=== PATIENT | female | born 1995 | race Caucasian/White ===

== ENCOUNTER 2018-12-30 11:26 | Emergency (ER) | payer SELFPAY ==
[2018-12-30 11:29] VITALS: BP 121/69; PULSE 90; RESP 18; TEMP 36.4; O2SAT 98
--- NOTE | 2018-12-30 11:47 | DI.US_ITS ---
EXAM: US ABDOMEN LIMITED CLINICAL HISTORY: RLQ pain, hx of tuboovarian abscess TECHNIQUE: Ultrasound performed using standard protocol. The right lower quadrant was scanned. COMPARISON: ABD AND PELVIS WITH CONTRAST from 05/18/2014 PELVIS ULTRASOUND *(P) from 06/30/2014 US OB TRANSVAGINAL from 12/30/2018 FINDINGS: RIGHT LOWER QUADRANT ULTRASOUND: The appendix is visualized in the right lower quadrant and has a migue meter of 4 millimeters. There is no surrounding inflammation. The appendix is compressible. There is no surrounding fluid collection. OB ULTRASOUND: There is an intrauterine gestation. The crown-rump length measurements correspond to 9 weeks 0 days and an EDC of July,. cardiac activity is demonstrated at 175 beats per mi nute. A 2.2 centimeter corpus luteum cyst is seen of the right ovary. No free fluid or abscess is see n. There is no evidence of torsion. IMPRESSION: Normal-appearing appendix. Living intrauterine gestation of 9 weeks 0 days. No abscess or fluid collection is seen.
--- NOTE | 2018-12-30 11:50 | W.ED.GENAD ---
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 Please follow-up closely with your obstetrics amortization clerk tomorrow at your scheduled appointment. If you notice any worsening of your symptoms, or any new symptoms such as vomiting, vaginal bleeding, diarrhea, fever, chills, shortness of breath, chest pain, numbness, weakness, or fainting , please return immediately to the emergency department for reevaluation. Please follow up with your primary care provider as soon as possible for reassessment and reevaluation. As always, it was a pleasure participating in your medical care today. Referrals: Barak Sr [Primary Care Provider] - Medical Decision Making This is a pleasant 23-year-old female with a past medical history of a right-sided tubo-ovarian abscess in 2014 who presents with right-sided pelvic pain for the last 24 hours, worsened with movement. Sharp in nature. She did take 1 g of Tylenol and this is not improved the symptoms. No vaginal discharge. States that her symptoms feel similar to her previous tubo-ovarian abscess. She denies fever or chills. Exam demonstrates notable right pelvic tenderness. Negative obturator and psoas sign. No other abnormalities. Concern/differential is elevated for tubo-ovarian abscess, ectopic , and less likely appendicitis. Will start with ultrasound for further evaluation and assessment. We will treat the patient's pain, rehydrate and reassess. 2:25 PM Patient's laboratory work-up is returned, no white count, no significant left shift. No bandemia. Normal electrolytes, normal renal function. Urinalysis shows no evidence of infection. Bedside vaginal exam performed demonstrates no evidence of bleeding, no significant tenderness. Bimanual exam demonstrates minimal tenderness on the right, but very mild with no evidence of acute surgical pelvic exam. Ultrasound was performed, and confirmed with Dr. Mccarty of radiology. No evidence of torsion, or ectopic . No tubo-ovarian abscess. She did have a small cyst, but this was otherwise unremarkable. Appendix was visualized but confirmed to be inconsistent with acute appendicitis. On repeat exam she demonstrates a stable abdomen with stable vital signs. Signs and symptoms appear inconsistent with acute surgical process. At this time I do feel that she can be safely discharged with close follow-up. She does have follow-up appointment with her obstetrics amortization clerk tomorrow afternoon. We discussed red flags which to return. I have extensively reviewed the treatment plan and discharge instructions with the patient. I have addressed all patient concerns at this time. The patient was made aware of what symptoms to monitor for that would warrant a return to the emergency department. Discussed the plan with the patient, they demonstrate verbal understanding and agreement with our assessment and plan at this time. HPI General Date/Time Provider Initiated Documentation: 12/30/18 11:34. HPI Narrative: This is a 23-year-old female with past medical history of a right-sided tubo-ovarian abscess in the past who presents today with right-sided pelvic pain. She is G1, P0. She states that for the last 2 to 3 days she has had this right-sided pain which is sharp in nature comes and goes in severity. Worsened with movement. No associated diarrhea vomiting or urinary symptoms. She suspects that she is been for the last 8 weeks, she is scheduled for her normal ultrasound tomorrow. She states that this pain is similar to when she had her tubo-ovarian abscess in the past. She denies any vaginal discharge, she does admit to small amount of regular mucus vaginally but states that this is been consistent throughout this . She denies any other complaints at this time. No other modifying factors. 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 Removed 10/12/15. Pt didn't like menstrual irregularity. Started OCPs. 08/2016 Nexplanon inserted 09/09/17 Nexplanon out. Didnt like feeling hormonal. Condoms. Depression (Chronic) (Acute) Right tubo-ovarian abscess 05/2014. Neg STI testing at time of eval. Rx with ABX and resolved w/o surgery. Surgical History hemorrhoid banding (04/09/17) Social History (Updated 12/20/18 @ 21:24 by Janette Daigle MD) Smoking/Tobacco Use Status: Current every day Tobacco: How many years used: 1 Quit status: considering quitting Alcohol Intake: current Alcohol Intake frequency: a few times a month Drug use: Rarely Substance use type: marijuana Details: Reviewed risks of marijuana use with Household members: other Details: FOB is Indra Drew. In relationship since August 2018 Housing: other Details: Patient returned from [place] August 2018 Number of Children: 0 current occupation: Unemployed. Sexually active: Yes What is your relationship status?: never Panel score (0-1 are the most socially isolated patients): 0 What type of physical activity do you participate in: none Do you feel safe in your relationship?: Yes Additional Social history: Patient has returned to an from [place]. Unstable housing and limited resources Female Reproductive History Menstrual control method: other (Did not have active contraception) History History 1 Para 0 Hx # Term Pregnancies 0 Multiple births 0 Hx # Pregnancies 0 Ectopic pregnancies 0 AB induced 0 Hx Number of Living Children 0 AB spontaneous 0 Exam Narrative Exam Narrative: 1.Const: Well-nourished, Well-developed, appearing stated age 2.Eyes: PERRL, no conjunctival injection, and symmetrical lids. 3.ENT: Atraumatic external nose and ears. Moist MM. Neck: Symmetric, trachea midline, No thyromegaly. 4.CVS: +S1/S2, No murmurs or gallops. Peripheral pulses 2+ and equal in all extremities. Brisk capillary refill in all extremities. 5.RESP: Unlabored respiratory effort. Clear to auscultation bilaterally. No wheezes rales or rhonchi 6.GI: Soft, Nontender/Nondistended, No hepatosplenomegaly. Pelvic exam demonstrates mild tenderness in the right lower pelvis. Mild guarding. She also does have mild pain over McBurney's point. However this is notably low. Negative obturator and psoas sign. No flank or CVA tenderness. Negative heel strike. Vaginal exam deferred. 7.MSK: Normocephalic/Atraumatic, Extremities w/o deformity or ttp No cyanosis or clubbing, Normal movement of all extremities 8.Skin: Warm, Dry. No rashes or lesions. 9.Neuro: stage rigger II-XII grossly intact. Sensation grossly intact, no focal neurologic deficits. 10.Psych: (AAO) x3. Appropriate mood and affect Course Vital Signs Vital signs: Vital Signs Temperature 36.4 C L 12/30/18 11:29 Pulse 90 12/30/18 11:29 Respiratory Rate 18 12/30/18 11:29 Blood Pressure 121/69 12/30/18 11:29 Pulse Oximetry 98 12/30/18 11:29 Temperature 36.4 C L 12/30/18 11:29 Temperature Source Skin 12/30/18 11:29 Pulse 90 12/30/18 11:29 Respiratory Rate 18 12/30/18 11:29 Respiratory Effort 12/30/18 11:33 Blood Pressure 121/69 12/30/18 11:29 Blood Pressure Position Supine 12/30/18 11:29 Pulse Oximetry 98 12/30/18 11:29 Oxygen Delivery Method Room Air 12/30/18 11:29 Oxygen Flow Rate 0 12/30/18 11:29 Pain Level 7 12/30/18 11:29
[2018-12-30] MEDS: Normal Saline 1,000 ML 1000 ML IV (12:10)
[2018-12-30 12:40] LABS: Abs Immature Grans 0.02 k/cumm (0.0-0.09); Absolute Basophil Count 0.01 k/cumm (0.0-0.2); Absolute Eosinophil Count 0.02 k/cumm (0.0-0.7); Absolute Lymphocyte Count 1.03 k/cumm (1.2-3.4); Absolute Monocyte Count 0.34 k/cumm (0.11-0.7); Absolute Neutrophil Count 8.25 k/cumm (1.2-6.7); Basophils % 0.1; Eosinophils % 0.2; Immature Grans % 0.2; Lymphocytes % 10.7; Mean Corp. HGB Concentration 33.3 g/dL (32.0-36.0); Mean Corpuscular Hemoglobin 29.4 pg (27.0-33.0); Mean Corpuscular Volume 88.2 fL (80-95); Mean Platelet Volume 9.1 fL (8.0-11.0); Monocytes % 3.5; Neutrophils % 85.3; Platelet Count 311 x1000/uL (130-400); RBC 4.08 m/cumm (4.00-5.20); RBC Distribution Width 12.9 % (11.7-14.6); White Blood Cell Count 9.67 k/cumm (4.4-10.8)
[2018-12-30 13:06] LABS: Bilirubin Negative (Negative); Blood Negative (Negative); Clarity Clear (Clear); Glucose Negative (Negative); Ketones >=160 mg/dL (Negative); Leukocyte Esterase Negative (Negative); Nitrite Negative (Negative); Specific Gravity 1.025 (1.005-1.025); Urobilinogen 0.2 EU/dL (Up TO 0.2)
[2018-12-30 13:52] LABS: ALT 19 U/L (14-59); AST 11 U/L (15-37); Albumin 3.4 g/dL (3.4-5.0); Alkaline Phosphatase 38 U/L (46-116); BUN 9 mg/dL (7-18); Bilirubin, Total 0.7 mg/dL (0.2-1.0); CREATININE 0.54 mg/dL (0.55-1.02); Calcium 8.2 mg/dL (8.5-10.1); Chloride 104 mmol/L (98-107); Glucose 92 mg/dL (74-106); Potassium 3.5 mmol/L (3.5-5.1); Sodium 137 mmol/L (136-145); Total Protein 6.6 g/dL (6.4-8.2)
== END 2018-12-30 14:36 | disposition home or self-care (01) ==
PROVIDERS: Emergency Provider Student in an Organized Health Care Education/Training Program; PCP Specialist/Technologist Athletic Trainer
DX: O26.891 Other specified pregnancy related conditions, first trimester (principal); R10.2 Pelvic and perineal pain; F17.210 Nicotine dependence, cigarettes, uncomplicated; Z3A.08 8 weeks gestation of pregnancy
CPT/HCPCS: 36415; 80053; 96361; 96374; 99284; 76705; 76817; 81003; 83605; 84702; 85025

== ENCOUNTER 2019-01-07 11:12 | Outpatient (CLI) | payer SELFPAY ==
[2019-01-07 12:22] LABS: Abs Immature Grans 0.02 k/cumm (0.0-0.09); Absolute Basophil Count 0.01 k/cumm (0.0-0.2); Absolute Eosinophil Count 0.05 k/cumm (0.0-0.7); Absolute Lymphocyte Count 1.49 k/cumm (1.2-3.4); Absolute Neutrophil Count 7.85 k/cumm (1.2-6.7); Basophils % 0.1; Eosinophils % 0.5; HCT 39.5 % (36.0-46.0); HGB 13.2 g/dL (12.0-15.5); Immature Grans % 0.2; Mean Corp. HGB Concentration 33.4 g/dL (32.0-36.0); Mean Corpuscular Hemoglobin 29.3 pg (27.0-33.0); Mean Corpuscular Volume 87.8 fL (80-95); Mean Platelet Volume 9.4 fL (8.0-11.0); Neutrophils % 79.2; Platelet Count 380 x1000/uL (130-400); RBC Distribution Width 13.1 % (11.7-14.6); White Blood Cell Count 9.92 k/cumm (4.4-10.8)
[2019-01-07 12:55] LABS: TSH (W/Ref FT4) 1.22 uIU/mL (0.36-3.74)
[2019-01-09 08:41] LABS: Hepatitis B Surface Ag Negative (Negative)
[2019-01-09 09:20] LABS: Hepatitis C Ab w Rflx HCV PCR Negative (Negative)
[2019-01-09 11:45] LABS: HIV-1/2 Ag & Ab Screen Negative (Negative)
[2019-01-09 12:09] LABS: Rubella IgG Ab (UVM) Positive (See Note)
[2019-01-09 12:12] LABS: Varicella IgG Antibody Positive (See Note)
[2019-01-09 16:08] LABS: Syphilis Total Ab w/Reflex Nonreactive (Nonreactive)
== END 2019-01-07 11:32 ==
PROVIDERS: PCP Specialist/Technologist Athletic Trainer; Visit Provider Advanced Practice Midwife
DX: Z34.91 Encounter for supervision of normal pregnancy, unspecified, first trimester (principal); Z11.4 Encounter for screening for human immunodeficiency virus [HIV]; Z11.59 Encounter for screening for other viral diseases; Z01.84 Encounter for antibody response examination
CPT/HCPCS: 86787; 86803; 86850; 86900; 86901; 87340; 87389; 84443; 85025; 86762; 86780

== ENCOUNTER 2019-01-07 11:25 | Outpatient (REF) | payer SELFPAY ==
--- NOTE | 2019-01-07 11:20 | PAPFT_PTH ---
PATIENT: Opal Drew LOC: [facility] U#:[id number] AGE/SX: 23/F ROOM: RE01/07/[address]: Katie Thompson : 1995 BED: DIS: 01/07/2019 SPEC #: [id number] RECD: 01/07/19 12:56 STATUS: JULIA REQ #: [id number] PABLO: 01/07/19 11:[address]: Katie Thompson DEPT: [facility] Cytology RECD BY: Sandra Anderson ENTERED: 01/07/19 12:56 SP TYPE: PAPFT OTHR DR: Barak Sr Tissues: 1 - CX/ENDOCX FOR PAP SMEARS Procedures: PAP THIN PREP/UVM Screening Comments: [id number]
[2019-01-07 12:39] LABS: *AMPHETAMINES SCREEN URINE Negative (Negative); *BARBITURATES SCREEN URINE Negative (Negative); *BENZODIAZEPINES SCREEN URINE Negative (Negative); Cannabinoids THC Negative (Negative); Cocaine Screen,Urine Negative (Negative); METHADONE URINE SCREEN Negative (Negative); OPIATES URINE SCREEN Negative (Negative)
[2019-01-07 12:47] LABS: Tricyclic Antidepressants Negative (Negative)
[2019-01-12 11:35] LABS: Buprenorphine Negative; Norbuprenorphine Negative
== END 2019-01-07 11:45 ==
LOC: LBN 11:25
PROVIDERS: PCP Specialist/Technologist Athletic Trainer; Visit Provider Advanced Practice Midwife
DX: Z34.91 Encounter for supervision of normal pregnancy, unspecified, first trimester (principal); Z12.4 Encounter for screening for malignant neoplasm of cervix
CPT/HCPCS: 80307; 88142; 87086

== ENCOUNTER 2019-01-07 11:43 | Outpatient (REF) | payer SELFPAY ==
[2019-01-09 15:07] LABS: Chlamydia Result Negative (Negative)
[2019-01-12 10:46] LABS: GC Result Negative (Negative)
== END 2019-01-07 12:03 ==
LOC: LBN 11:43
PROVIDERS: PCP Specialist/Technologist Athletic Trainer; Visit Provider Advanced Practice Midwife
DX: Z34.91 Encounter for supervision of normal pregnancy, unspecified, first trimester (principal); Z11.3 Encounter for screening for infections with a predominantly sexual mode of transmission
CPT/HCPCS: 87491; 87591; 87480; 87510; 87660

== ENCOUNTER 2019-04-03 02:28 | Outpatient (CLI) | payer SELFPAY ==
--- NOTE | 2019-04-03 10:00 | DI.US_ITS ---
EXAM: US OB 2-3 TRIMESTER CLINICAL HISTORY: anatomy survey, Z34.90 TECHNIQUE: Ultrasound performed using standard protocol. COMPARISON: US OB TRANSVAGINAL from 12/30/2018 FINDINGS: Fetus was in variable position during the exam. The placenta is anterior. Biometric measurements co rrespond to 22 weeks 4 days, consistent with previous dating. No abnormalities are identified. The amniotic fluid amount appears visually normal. IMPRESSION: survey is within normal limits. DATA REPOSITORY:
== END 2019-04-03 02:48 ==
PROVIDERS: PCP Specialist/Technologist Athletic Trainer; Visit Provider Obstetrics & Gynecology
DX: Z34.90 Encounter for supervision of normal pregnancy, unspecified, unspecified trimester (principal); Z3A.22 22 weeks gestation of pregnancy
CPT/HCPCS: 76805

== ENCOUNTER 2019-04-18 12:29 | Observation (INO) | payer MEDICAID, SELFPAY ==
[2019-04-18 12:32] VITALS: BP 116/74; PULSE 102; RESP 18; TEMP 36.8; O2SAT 100
--- NOTE | 2019-04-18 12:52 | ED.GENADUL_ITS ---
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 Denies fever, vomiting, diarrhea or urinary symptoms. Denies any vaginal bleeding or gush of fluid. She is followed by women's wellness upstairs. She appears nontoxic. Heart rate 102, remainder vitals within normal limits. She has periumbilical tenderness palpated at gravid uterus just above umbilicus. No rigidity or guarding. No epigastric tenderness. Discussed with patient that differential could include gerd, gastritis, gas. Appendicitis seems less likely as pt denies any nausea and has no R mid-lower tenderness. Normal heart tones. As patient is near end of second trimester, consider labor. Case discussed with OB doctor on-call Dr. Villalba -accepts patient to transfer to floor for monitoring. Medical Records Medical records reviewed: Yes I reviewed the patient's medical records. HPI General Mode of arrival: ambulatory . Date/Time Provider Initiated Documentation: 04/18/19 12:43 . Limitations to Documentation: no limitations . Information obtained by: patient . History of Present Illness 23 year old F presents to the emergency department with the chief complaint of Abdominal pain, Quality is described as sharp, and is localized to the abdomen. Patient reports no radiation. Patient started experiencing this hour(s) (30) and it has been constant. No relieving factors improve symptom(s), No exacerbating factors reported . Patient notes loss of appetite; denies fever/chills, malaise, nausea/vomiting and shortness of breath. 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 Review of Systems All systems reviewed & are unremarkable except as noted in HPI and below Constitutional Constitutional: Reports as per HPI, Denies chills and Denies fever(s) Eyes Eyes: Denies blurry vision ENT Ears, Nose, Mouth, and Throat: Denies dizziness, Denies sore throat and Denies throat swelling Cardiovascular Cardiovascular: Denies chest pain and Denies dyspnea Respiratory Respiratory: Denies cough and Denies dyspnea Gastrointestinal Gastrointestinal: Reports abdominal pain, Denies diarrhea and Denies vomiting Genitourinary Genitourinary: Denies hematuria and Denies dysuria Musculoskeletal Musculoskeletal: Denies back pain and Denies numbness Integumentary/Breasts Skin/Breast: Denies lesions and Denies rash Neurologic Neurologic: Denies dizziness, Denies focal weakness and Denies numbness Allergic/Immunologic Allergic/Immunologic: Denies throat swelling [facility] Medical History (Updated 04/18/19 @ 12:53 by Caridad Edward DO) Atypical squamous cells of undetermined significance (ASCUS) on Papanicolaou smear of cervix (Acute) Contraception management Mirena IUD 08/2014. Removed 10/12/15. Pt didn't like menstrual irregularity. Started OCPs. 08/2016 Nexplanon inserted 09/09/17 Nexplanon out. Didnt like feeling hormonal. Condoms. Depression (Chronic) medication in the past, Has a counselor who she doesn't see often. Joey. (Acute) Right tubo-ovarian abscess 05/2014. Neg STI testing at time of eval. Rx with ABX and resolved w/o surg david. Tobacco dependence (Acute) Surgical History (Updated 01/07/19 @ 10:30 by Katie Thompson CNM) H/O hemorrhoidectomy (Chronic) hemorrhoid banding (04/09/17) Family History (Updated 01/07/19 @ 10:44 by Katie Thompson CNM) Mother Tachycardia Father Hypertension Depression Psychosis Mother Heart disease Social History (Updated 01/07/19 @ 10:12 by Elena Rose RN) Smoking/Tobacco Use Status: Current every day Tobacco: How many years used: 1 Quit status: considering quitting Alcohol Intake: former Year quit: 09/29 Drug use: Rarely Substance use type: marijuana Details: Reviewed risks of marijuana use with Household members: other Details: FOB is Indra Drew. In relationship since August 2018 Housing: other Details: Patient returned from [place] August 2018 Number of Children: 0 current occupation: Unemployed. Sexually active: Yes What is your relationship status?: never Panel score (0-1 are the most socially isolated patients): 0 What type of physical activity do you participate in: none Seatbelt use: always Do you feel safe in your relationship?: Yes Additional Social history: Patient has returned to an from [place]. Unstable housing and limited resources Female Reproductive History Menstrual control method: other (Did not have active contraception) History History 1 Para 0 Hx # Term Pregnancies 0 Multiple births 0 Hx # Pregnancies 0 Ectopic pregnancies 0 AB induced 0 Hx Number of Living Children 0 AB spontaneous 0 Exam Const General: cooperative, healthy appearing and no acute distress HENMT Head: normal to inspection Face and sinus: normal facial exam Eyes General: appearance normal, both eyes and all related structures EOM: EOM intact bilaterally Neck Neck: normal visual inspection and No submandibular swelling Lymphatic: no lymphadenopathy noted Chest Chest: normal inspection of the chest and no tenderness Resp Effort & Inspection: normal respiratory effort and able to speak in complete sentences Auscultation: clear to auscultation bilaterally Cardio Rate: regular rate Rhythm: regular rhythm GI Inspection: normal to inspection Palpation: soft, not firm, not rigid and tender periumbilically (Just above the gravid uterus at umbilicus) Auscultation: hypoactive bowel sounds Other: No epigastric, left lower quadrant or right lower quadrant tenderness. No right or left mid abdominal tenderness. Back/Spine/Pelvis Thoracic/Lumbar Spine: thoracic and lumbar spine normal to inspection Pelvis: no pain with anterior-posterior compression Skin General skin exam: no rashes or lesions noted Neuro General: alert, awake and oriented x3 Cognition: normal cognition Speech: speech normal Motor: muscle tone normal throughout Sensory Exam: no sensory deficits noted Extrem General: normal to inspection, full ROM, normal capillary refill, no calf tenderness bilaterally and no edema Psych Appearance: grossly normal Mental Status: mental status grossly normal Speech and Movement: speech and movement normal Affect: normal affect Course Vital Signs Vital signs: Vital Signs Temperature 98.2 F 04/18/19 12:32 Pulse 102 H 04/18/19 12:32 Respiratory Rate 18 04/18/19 12:32 Blood Pressure 116/74 04/18/19 12:32 Pulse Oximetry 100 04/18/19 12:32 Temperature 98.2 F 04/18/19 12:32 Temperature Source Temporal Artery Scan 04/18/19 12:32 Pulse 102 H 04/18/19 12:32 Respiratory Rate 18 04/18/19 12:32 Respiratory Effort Non-Labored 04/18/19 12:41 Blood Pressure 116/74 04/18/19 12:32 Blood Pressure Position Sitting 04/18/19 12:32 Pulse Oximetry 100 04/18/19 12:32 Oxygen Delivery Method Room Air 04/18/19 12:32 Oxygen Flow Rate 0 04/18/19 12:32 Pain Level 7 04/18/19 12:32
[2019-04-18 14:16] LABS: ALT 12 U/L (14-59); AST 12 U/L (15-37); Albumin 2.9 g/dL (3.4-5.0); Alkaline Phosphatase 60 U/L (46-116); Bilirubin, Direct 0.11 mg/dL (0.00-0.20); Bilirubin, Total 0.5 mg/dL (0.2-1.0); Total Protein 6.1 g/dL (6.4-8.2)
[2019-04-18 14:33] LABS: Fetal Fibronectin Negative (Negative)
--- NOTE | 2019-04-20 12:36 | W.PM.HP.N ---
Date of service: 04/19/19 Time of Service: 14:00 Assessment and Plan Assessment and plan (1) Abdominal pain during in second trimester: Status: Acute Assessment and plan: patient with mild epigastric pain, and no evidence of PIH, labor,. abruption or other ob complications. will push fluids, rest and follow up if any problems.. discussed bid domitila and labor precations. History of Present Illness History of Present Illness Chief Complaint: epigastric pain since 1130, no bleeding, leakage of fluid, or contractions Review of Systems Constitutional Constitutional: Denies anorexia, Denies body ache(s), Denies chills, Denies daytime sleepiness, Denies difficulty sleeping, Denies excessive sweating, Denies fatigue, Denies fever(s), Denies frequent falls, Denies headache(s), Denies increased appetite, Denies lethargy, Denies malaise, Denies night sweats, Denies poor appetite, Denies snoring, Denies stops breathing during sleep, Denies weakness, Denies weight loss and Denies other ENT Ears, Nose, Mouth, and Throat: Denies headache(s) Respiratory Respiratory: Denies snoring Gastrointestinal Gastrointestinal: Reports abdominal pain, Denies melena, Denies bloating, Denies change in bowel habits, Denies tenesmus, Denies change in stool character, Denies coffee ground emesis, Denies constipation and Denies early satiety Neurologic Neurologic: Denies frequent falls, Denies headache(s) and Denies weakness Endocrine Endocrine: Denies excessive sweating and Denies fatigue [facility] Medical History (Updated 04/18/19 @ 12:53 by Caridad Edward DO) Atypical squamous cells of undetermined significance (ASCUS) on Papanicolaou smear of cervix (Acute) Contraception management Mirena IUD 08/2014. Removed 10/12/15. Pt didn't like menstrual irregularity. Started OCPs. 08/2016 Nexplanon inserted 09/09/17 Nexplanon out. Didnt like feeling hormonal. Condoms. Depression (Chronic) medication in the past, Has a counselor who she doesn't see often. Joey. (Acute) Right tubo-ovarian abscess 05/2014. Neg STI testing at time of eval. Rx with ABX and resolved w/o surgery. Tobacco dependence (Acute) Surgical History (Updated 01/07/19 @ 10:30 by Katie Thompson CNM) H/O hemorrhoidectomy (Chronic) hemorrhoid banding (04/09/17) Family History (Updated 01/07/19 @ 10:44 by Katie Thompson CNM) Mother Tachycardia Father Hypertension Depression Psychosis Mother Heart disease Social History (Updated 01/07/19 @ 10:12 by Elena Rose RN) Smoking/Tobacco Use Status: Current every day Tobacco: How many years used: 1 Quit status: considering quitting Alcohol Intake: former Year quit: 09/29 Drug use: Rarely Substance use type: marijuana Details: Reviewed risks of marijuana use with Household members: other Details: FOB is Indra Drew. In relationship since August 2018 Housing: other Details: Patient returned from [place] August 2018 Number of Children: 0 current occupation: Unemployed. Sexually active: Yes What is your relationship status?: never Panel score (0-1 are the most socially isolated patients): 0 What type of physical activity do you participate in: none Seatbelt use: always Do you feel safe in your relationship?: Yes Additional Social history: Patient has returned to an [place] from [place]. Unstable housing and limited resources Female Reproductive History Menstrual control method: other (Did not have active contraception) History History 1 Para 0 Hx # Term Pregnancies 0 Multiple births 0 Hx # Pregnancies 0 Ectopic pregnancies 0 AB induced 0 Hx Number of Living Children 0 AB spontaneous 0 Meds Home Medications and Allergies Home Medications Medication Instructions Recorded Confirmed Type ondansetron HCl 4 mg tablet 4 mg PO Q6H #20 tab 12/31/18 04/18/19 Rx prenat.vits,zia,[id number]-eyko-zwpsa 1 tab PO DAILY 12/31/18 04/18/19 History Allergies Allergy/AdvReac Type Severity Reaction Status Date / Time adhesive Allergy Severe dunham skin Unverified 04/18/19 12:44 after being on tegan Allergy Intermediate vomiting Verified 04/18/19 12:44 Exam Const General: cooperative, healthy appearing, comfortable, no acute distress and well developed Nutritional Appearance: average body habitus Orientation: alert and oriented x3 GI Palpation: soft and no hepatosplenomegaly Other: patient has slight tenderness along the fundus. There are NO contractions on the monitor and there is a category one heart tones, Abdomen image: 1. patient reports pain in this area Bimanual Exam- Vagina & Uterus: uterus enlarged (The cervix is long, thick, closed and firm.) Results Last Vital Signs Temp 98.2 F 04/18/19 12:32 Pulse 102 H 04/18/19 12:32 Resp 18 04/18/19 12:32 BP 116/74 04/18/19 12:32 Pulse Ox 100 04/18/19 12:32
--- NOTE | 2019-04-20 13:07 | W.PM.HP.N ---
Date of service: 04/19/19 Time of Service: 12:08 Assessment and Plan Assessment and plan (1) Abdominal pain during in second trimester: Status: Acute Assessment and plan: Patient was evaluated, has no evidence of labor, no evidence of preeclampsia or help syndrome, no evidence of abruption. Will go home push fluids rest, reviewed twice daily kick counts as well as labor precautions PIH precautions with patient. History of Present Illness History of Present Illness Chief Complaint: Patient reports that she has had epigastric pain since 11:30 AM. No bleedi Review of Systems All systems reviewed & are unremarkable except as noted in HPI and below PFSH Medical History (Updated 04/18/19 @ 12:53 by Caridad Edward DO) Atypical squamous cells of undetermined significance (ASCUS) on Papanicolaou smear of cervix (Acute) Contraception management Mirena IUD 08/2014. Removed 10/12/15. Pt didn't like menstrual irregularity. Started OCPs. 08/2016 Nexplanon inserted 09/09/17 Nexplanon out. Didnt like feeling hormonal. Condoms. Depression (Chronic) medication in the past, Has a counselor who she doesn't see often. Joey. (Acute) Right tubo-ovarian abscess 05/2014. Neg STI testing at time of eval. Rx with ABX and resolved w/o surgery. Tobacco dependence (Acute) Surgical History (Updated 01/07/19 @ 10:30 by Katie Thompson CNM) H/O hemorrhoidectomy (Chronic) hemorrhoid banding (04/09/17) Family History (Updated 01/07/19 @ 10:44 by Katie Thompson CNM) Mother Tachycardia Father Hypertension Depression Psychosis Mother Heart disease Social History (Updated 01/07/19 @ 10:12 by Elena Rose RN) Smoking/Tobacco Use Status: Current every day Tobacco: How many years used: 1 Quit status: considering quitting Alcohol Intake: former Year quit: 09/29 Drug use: Rarely Substance use type: marijuana Details: Reviewed risks of marijuana use with Household members: other Details: FOB is Indra Drew. In relationship since August 2018 Housing: other Details: Patient returned from [place] August 2018 Number of Children: 0 current occupation: Unemployed. Sexually active: Yes What is your relationship status?: never Panel score (0-1 are the most socially isolated patients): 0 What type of physical activity do you participate in: none Seatbelt use: always Do you feel safe in your relationship?: Yes Additional Social history: Patient has returned to an EK from [place]. Unstable housing and limited resources Female Reproductive History Menstrual control method: other (Did not have active contraception) History History 1 Para 0 Hx # Term Pregnancies 0 Multiple births 0 Hx # Pregnancies 0 Ectopic pregnancies 0 AB induced 0 Hx Number of Living Children 0 AB spontaneous 0 Meds Home Medications and Allergies Home Medications Medication Instructions Recorded Confirmed Type ondansetron HCl 4 mg tablet 4 mg PO Q6H #20 tab 12/31/18 04/18/19 Rx prenat.vits,zia,[id number] 1 tab PO DAILY 12/31/18 04/18/19 History Allergies Allergy/AdvReac Type Severity Reaction Status Date / Time adhesive Allergy Severe dunham skin Unverified 04/18/19 12:44 after being on tegan Allergy Intermediate vomiting Verified 04/18/19 12:44 Exam Narrative Exam Narrative: Patient is alert, no acute distress Gravid uterus, mildly tender at the very top of the uterus, no right upper quadrant tenderness. No hepatosplenomegaly noted. There is no contractions noted on the toco. Cervix is long thick closed and firm. Results Last Vital Signs Temp 98.2 F 04/18/19 12:32 Pulse 102 H 04/18/19 12:32 Resp 18 04/18/19 12:32 BP 116/74 04/18/19 12:32 Pulse Ox 100 04/18/19 12:32
== END 2019-04-18 15:53 | disposition home or self-care (01) ==
LOC: ER 13:05 → OBS 13:32
PROVIDERS: Admitting Provider Obstetrics & Gynecology; Emergency Provider Physician Assistant; PCP Specialist/Technologist Athletic Trainer; Visit Provider Obstetrics & Gynecology
DX: O26.892 Other specified pregnancy related conditions, second trimester (principal); Z3A.24 24 weeks gestation of pregnancy; R10.13 Epigastric pain
CPT/HCPCS: 36415; 80076; 99222; 99285; 82731; 99284; G0378

== ENCOUNTER 2019-05-11 07:56 | Outpatient (CLI) | payer MEDICAID, SELFPAY ==
[2019-05-11 10:47] LABS: Glucose,1 Hr (Glucola) 103 mg/dL (80-140)
[2019-05-11 10:49] LABS: HCT 32.6 % (36.0-46.0); HGB 10.6 g/dL (12.0-15.5); Mean Corp. HGB Concentration 32.5 g/dL (32.0-36.0); Mean Corpuscular Hemoglobin 28.6 pg (27.0-33.0); Mean Corpuscular Volume 87.9 fL (80-95); Mean Platelet Volume 8.8 fL (8.0-11.0); Platelet Count 353 x1000/uL (130-400); RBC 3.71 m/cumm (4.00-5.20); RBC Distribution Width 12.2 % (11.7-14.6); White Blood Cell Count 10.28 k/cumm (4.4-10.8)
== END 2019-05-11 08:16 ==
PROVIDERS: Obstetrics & Gynecology; PCP Specialist/Technologist Athletic Trainer; Visit Provider Internal Medicine Gastroenterology
DX: Z34.93 Encounter for supervision of normal pregnancy, unspecified, third trimester (principal)
CPT/HCPCS: 36415; 82950; 85027

== ENCOUNTER 2019-07-05 11:09 | Observation (INO) | payer MEDICAID, SELFPAY ==
[2019-07-05 11:51] LABS: HCT 30.9 % (36.0-46.0); HGB 9.9 g/dL (12.0-15.5); Mean Corpuscular Hemoglobin 26.1 pg (27.0-33.0); Mean Corpuscular Volume 81.3 fL (80-95); Mean Platelet Volume 9.4 fL (8.0-11.0); Platelet Count 359 x1000/uL (130-400); RBC Distribution Width 13.3 % (11.7-14.6); White Blood Cell Count 9.86 k/cumm (4.4-10.8)
[2019-07-05 12:04] LABS: ALT 14 U/L (14-59); AST 14 U/L (15-37); Albumin 2.4 g/dL (3.4-5.0); Alkaline Phosphatase 155 U/L (46-116); BUN 4 mg/dL (7-18); Bilirubin, Total 0.5 mg/dL (0.2-1.0); CREATININE 0.59 mg/dL (0.55-1.02); Calcium 8.1 mg/dL (8.5-10.1); Chloride 104 mmol/L (98-107); Glucose 110 mg/dL (74-106); Potassium 3.5 mmol/L (3.5-5.1); Sodium 135 mmol/L (136-145); Total Protein 5.7 g/dL (6.4-8.2)
== END 2019-07-05 12:55 | disposition home or self-care (01) ==
LOC: OBS 11:19
PROVIDERS: Admitting Provider Obstetrics & Gynecology Gynecology; PCP Specialist/Technologist Athletic Trainer; Visit Provider Obstetrics & Gynecology Gynecology
DX: O12.03 Gestational edema, third trimester (principal); Z3A.35 35 weeks gestation of pregnancy
CPT/HCPCS: 36415; 80053; 85027; 59025; G0378

== ENCOUNTER 2019-07-07 13:49 | Outpatient (REF) | payer MEDICAID, SELFPAY ==
[2019-07-07 15:49] LABS: *AMPHETAMINES SCREEN URINE Negative (Negative); *BARBITURATES SCREEN URINE Negative (Negative); *BENZODIAZEPINES SCREEN URINE Negative (Negative); Cannabinoids THC Negative (Negative); Cocaine Screen,Urine Negative (Negative); METHADONE URINE SCREEN Negative (Negative); OPIATES URINE SCREEN Negative (Negative)
[2019-07-07 15:58] LABS: Tricyclic Antidepressants Negative (Negative)
[2019-07-14 13:18] LABS: Buprenorphine Negative; Norbuprenorphine Negative
== END 2019-07-07 14:09 ==
LOC: LBN 13:49
PROVIDERS: PCP Specialist/Technologist Athletic Trainer; Visit Provider Obstetrics & Gynecology
DX: Z34.93 Encounter for supervision of normal pregnancy, unspecified, third trimester (principal); Z36.85 Encounter for antenatal screening for Streptococcus B
CPT/HCPCS: 80307; 87081

== ENCOUNTER 2019-07-17 22:15 | Observation (INO) | payer MEDICAID, SELFPAY ==
[2019-07-17 22:47] LABS: ROM Plus Negative
== END 2019-07-17 23:00 | disposition home or self-care (01) ==
LOC: OBS 07-28 15:17
PROVIDERS: Admitting Provider Obstetrics & Gynecology; PCP Specialist/Technologist Athletic Trainer; Visit Provider Obstetrics & Gynecology
DX: O47.1 False labor at or after 37 completed weeks of gestation (principal); Z3A.37 37 weeks gestation of pregnancy
CPT/HCPCS: 84112; 59025; G0378

== ENCOUNTER 2019-07-29 06:44 | Inpatient (IN) | payer MEDICAID, SELFPAY ==
[2019-07-29 08:58] LABS: HGB 10.3 g/dL (12.0-15.5); Mean Corp. HGB Concentration 31.2 g/dL (32.0-36.0); Mean Corpuscular Hemoglobin 23.9 pg (27.0-33.0); Mean Corpuscular Volume 76.6 fL (80-95); Mean Platelet Volume 9.7 fL (8.0-11.0); Platelet Count 448 x1000/uL (130-400); RBC 4.31 m/cumm (4.00-5.20); RBC Distribution Width 14.5 % (11.7-14.6)
[2019-07-29] MEDS: Penicillin G POT. 5,000,000 UNITS in Normal Saline 100 ML 200 UNITS IVPB (10:36)
[2019-07-29] MEDS: Penicillin G POT. 3,000,000 UNITS in Normal Saline 50 ML 100 UNITS IVPB ×3 (14:08→22:03)
[2019-07-29] MEDS: Lactated Ringers 1,000 ML 125 ML IV (16:43)
[2019-07-29] MEDS: fentaNYL 100 MCG/2 ML VIAL EP (18:04)
[2019-07-29] MEDS: FentaNYL/ROPIvacaine 2 mcg/ml and 0.1% 200 ML CADD Cassette EP (18:04)
[2019-07-29] MEDS: Oxytocin/Normal Saline 30 UNITS/500 ML BAG IV (18:10)
[2019-07-30 01:15] LABS: COVID-19 RT-PCR UVMMC Result Negative (Negative)
[2019-07-30] MEDS: Lactated Ringers 1,000 ML 125 ML IV (01:51)
[2019-07-30] MEDS: Penicillin G POT. 3,000,000 UNITS in Normal Saline 50 ML 100 UNITS IVPB ×2 (02:14→06:02)
[2019-07-30] MEDS: Lidocaine 1% Multi-Dose 20 ML VIAL IJ (09:00)
--- NOTE | 2019-07-31 07:14 | W.PM.PROGNOT ---
Date of Service Date of service: 07/31/19 Time of Service: 07:14 Assessment and Plan Assessment and plan (1) (normal spontaneous vaginal delivery): Status: Acute Assessment and plan: day #1 status post normal spontaneous vaginal delivery. Doing well. Desires discharge home today. Will discharge if baby stable to do so. Follow-up in the office in 2 weeks and 6 weeks. Motrin and Tylenol as needed for pain Subjective Subjective Patient reports: no new complaints Interval history since last seen: Patient is seen day #1. She did get some sleep last night. She is working on breast-feeding directly versus expressed breast milk. Lochia is appropriate pain is appropriate Exam Const General: cooperative, healthy appearing, comfortable and no acute distress Orientation: alert and oriented x3 Eyes General: appearance normal, both eyes and all related structures Resp Effort & Inspection: normal respiratory effort Cardio Rate: regular rate Rhythm: regular rhythm Other: Uterus firm and below the umbilicus per nursing Extrem General: normal to inspection, no calf tenderness and no calf tenderness bilaterally Psych Appearance: grossly normal Mental Status: mental status grossly normal Speech and Movement: speech and movement normal Mood: congruent mood Affect: normal affect Attitude: cooperative Thought Process: normal Thought Content: normal Insight: insight good Judgment: judgment good Objective Objective Clinical Data: Intake & Output 07/30/19 07/30/19 07/31/19 11:59 23:59 11:59 Intake Total 1150 / 1150 Balance 1150 / 1150 Intake: IV 1150 / 1150 Laboratory Results WBC 12.40 k/cumm (4.4-10.8) H 07/29/19 08:45 RBC 4.31 m/cumm (4.00-5.20) 07/29/19 08:45 Hgb 10.3 g/dL (12.0-15.5) L 07/29/19 08:45 Hct 33.0 % (36.0-46.0) L 07/29/19 08:45 MCV 76.6 fL (80-95) L 07/29/19 08:45 MCH 23.9 pg (27.0-33.0) L 07/29/19 08:45 MCHC 31.2 g/dL (32.0-36.0) L 07/29/19 08:45 RDW 14.5 % (11.7-14.6) 07/29/19 08:45 Plt Count 448 x1000/uL (130-400) H 07/29/19 08:45 MPV 9.7 fL (8.0-11.0) 07/29/19 08:45 COVID-19 PCR Negative (Negative) 07/29/19 16:40 Nasopharyn COVID-19 PCR Not Applicable 07/29/19 16:40 Ref Test Perform Site [facility] lab 07/29/19 16:40 Patient ABO/Rh A Positive 07/29/19 08:45 Antibody Screen Negative 07/29/19 08:45
--- NOTE | 2019-07-31 07:21 | W.PM.DS.N ---
Date of service: 07/31/19 Time of Service: 07:21 DS: Diagnosis Discharge Diagnosis (1) (normal spontaneous vaginal delivery): Status: Acute Discharge Plan Disposition Patient Disposition: HOME Condition: Good Discharge Details Reason For Visit: R/O LABOR Admit Date/Time: 07/29/19 15:51 Admit Provider: Gemma Paulino Attending Provider: Janette Daigle Primary Care Provider: Barak Sr Hospital Course Hospital Course: Patient presented to [facility] in early labor. She had artificial rupture membranes for clear fluid she received epidural for pain control and subsequent Pitocin augmentation of her labor. She went on to the point that she was completely dilated and with the fetus in the vertex position delivered by normal spontaneous vaginal delivery of viable female . She had uncomplicated course and was discharged home day #1 ambulating, tolerating regular diet and oral pain medication with stable vital signs. Physiologic lochia. Breast and bottlefeeding. Home Meds and New Rx's Prescriptions: No Action prenat.vits,zia,fot-famo-fzpga Tablet 1 tab PO DAILY RF: 0 Discharge Instructions Additional Instructions: Pelvic rest for 6 weeks Activity:: Activity as Tolerated Equipment/Supplies:: No Equipment Needed Diet:: Normal Diet Discharge Orders Discharge Orders: Discharge Order (Routine); Ordered 07/31/19 Ordered By: Gemma Paulino DS: Summary Summary Time spent discussing smoking cessation with patient: 3 to 10 minutes Status at Discharge Functional status at discharge: independent ambulation Overall status at discharge: patient is back to baseline Mental Status: mental status grossly normal Speech and Movement: speech and movement normal Mood: congruent mood Affect: normal affect Time Spent with Patient providing and/or coordinating discharge services: Less than 30 minutes Specific discharge activities: Pelvic rest for 6 weeks Exam Narrative Exam Narrative: See examination progress note today Psych Mental Status: mental status grossly normal Speech and Movement: speech and movement normal Mood: congruent mood Affect: normal affect DS: Data Vitals/I&O Vitals and I&O: Intake & Output 07/30/19 07/30/19 07/31/19 11:59 23:59 11:59 Intake Total 1150 / 1150 Balance 1150 / 1150 Intake: IV 1150 / 1150 [facility] Medical History Atypical squamous cells of undetermined significance (ASCUS) on Papanicolaou smear of cervix (Acute) Contraception management Mirena IUD 08/2014. Removed 10/12/15. Pt didn't like menstrual irregularity. Started OCPs. 08/2016 Nexplanon inserted 09/09/17 Nexplanon out. Didnt like feeling hormonal. Condoms. Depression (Chronic) medication in the past, Has a counselor who she doesn't see often. Joey. (normal spontaneous vaginal delivery) (Acute) (Acute) Right tubo-ovarian abscess 05/2014. Neg STI testing at time of eval. Rx with ABX and resolved w/o surgery. Tobacco dependence (Acute) Surgical History H/O hemorrhoidectomy (Chronic) hemorrhoid banding (04/09/17) Family History Mother Tachycardia Father Hypertension Depression Psychosis Mother Heart disease Social History Smoking/Tobacco Use Status: Current every day Tobacco: How many years used: 1 Quit status: considering quitting Alcohol Intake: former Year quit: 09/29 Drug use: Rarely Substance use type: marijuana Details: Reviewed risks of marijuana use with Household members: other Details: FOB is Indra Drew. In relationship since August 2018 Housing: other Details: Patient returned from [place] August 2018 Number of Children: 0 current occupation: Unemployed. Sexually active: Yes What is your relationship status?: never Panel score (0-1 are the most socially isolated patients): 0 What type of physical activity do you participate in: none Seatbelt use: always Do you feel safe in your relationship?: Yes Additional Social history: Patient has returned to an EK from [place]. Unstable housing and limited resources Female Reproductive History Menstrual control method: other History History 1 Para 0 Hx # Term Pregnancies 0 Multiple births 0 Hx # Pregnancies 0 Ectopic pregnancies 0 AB induced 0 Hx Number of Living Children 0 AB spontaneous 0
== END 2019-07-31 13:45 | disposition home or self-care (01) | DRG 807 ==
PROVIDERS: Admitting Provider Obstetrics & Gynecology; PCP Specialist/Technologist Athletic Trainer; Visit Provider Obstetrics & Gynecology Gynecology
DX: O70.0 First degree perineal laceration during delivery (principal); Z37.0 Single live birth; O62.1 Secondary uterine inertia; O99.824 Streptococcus B carrier state complicating childbirth; O99.334 Smoking (tobacco) complicating childbirth; Z3A.39 39 weeks gestation of pregnancy; Z67.10 Type A blood, Rh positive; F17.210 Nicotine dependence, cigarettes, uncomplicated
CPT/HCPCS: 36415; 85027; 86850; 86900; 86901; 99232; 99238; U0003; G0378; J2540; J3010; J3490

== ENCOUNTER 2019-07-29 07:20 | Emergency (ER) | payer MEDICAID, SELFPAY ==
--- NOTE | 2019-07-29 07:34 | NUR.NOTE ---
Nursing Note: Claudia Mayorga, called stating that she found a pre admit account for patient for today in Center. I called Center and they stated that they were indeed waiting for her at that dept. RAGHAV Gundesron was notified and she took the patient up to the Center. Ade Dumas.
--- NOTE | 2019-07-29 09:04 | NUR.NOTE ---
Brought to OB in a w/c as they were expecting her. Mother with pt.Nursing Note:
== END 2019-07-29 07:34 | disposition other institution (70) ==
LOC: ER 07:38
PROVIDERS: PCP Specialist/Technologist Athletic Trainer
DX: Z53.21 Procedure and treatment not carried out due to patient leaving prior to being seen by health care provider (principal)

== ENCOUNTER 2019-09-15 00:38 | Outpatient (CLI) | payer MEDICAID, SELFPAY ==
--- NOTE | 2019-09-15 06:15 | DI.US_ITS ---
EXAM: US PELVIS TRANSVAGINAL CLINICAL HISTORY: Right sided pelvic pain,RT OVARIAN CYST,N83.201 TECHNIQUE: Ultrasound performed using standard protocol. COMPARISON: No exams were available for comparison FINDINGS: Pelvic ultrasound was performed transabdominally and transvaginally. Please see the accompanying carlo a sheet for measurements of the pelvic structures. The ovaries have a normal follicular appearance. Uterus is unremarkable in appearance with 2-3 millimeter in diameter unremarkable endometrial stripe . No free fluid identified in the cul-de-sac. Limited scanning of the kidneys unremarkable. IMPRESSION: Negative pelvic ultrasound. DATA REPOSITORY:
== END 2019-09-15 00:58 ==
PROVIDERS: PCP Specialist/Technologist Athletic Trainer; Visit Provider Obstetrics & Gynecology
DX: N83.201 Unspecified ovarian cyst, right side (principal); R10.2 Pelvic and perineal pain
CPT/HCPCS: 76830; 76856

== ENCOUNTER 2020-03-25 01:26 | Outpatient (CLI) | payer MEDICAID, SELFPAY ==
[2020-03-25 10:14] LABS: MCH 23.4 pg (27.0-33.0); MCHC 30.2 % (32.0-36.0); MCV 77.5 fL (80-95); Platelet Count 429 10^3/uL (130-400); RBC 5.55 10^6/uL (3.93-5.22); RDW 15.9 % (11.7-14.6); RDW-SD 44.9 fL; WBC 7.12 10^3/uL (4.4-10.8)
[2020-03-26 11:48] LABS: COVID-19 RT-PCR UVMMC Result Negative (Negative)
== END 2020-03-25 01:27 | disposition home or self-care (01) ==
LOC: LBO 01:26
PROVIDERS: PCP Nurse Practitioner Family; Visit Provider Obstetrics & Gynecology
DX: R10.2 Pelvic and perineal pain (principal); Z20.822 Contact with and (suspected) exposure to COVID-19; Z01.818 Encounter for other preprocedural examination; Z01.812 Encounter for preprocedural laboratory examination
CPT/HCPCS: 36415; 85027; 86850; 86900; 86901; U0003

== ENCOUNTER 2020-03-30 06:01 | Day surgery (SDC) | payer MEDICAID, SELFPAY ==
[2020-03-30] VITALS (7 sets, daily range): BP systolic 96–118; BP diastolic 59–75; PULSE 64–93; RESP 11–18; TEMP 36.3–36.8; O2SAT 99–100
[2020-03-30] MEDS: Lactated Ringers 1,000 ML 125 ML IV (07:00)
[2020-03-30 07:48] LABS: HCG Quant, Pregnancy 1 mIU/mL (1-3)
--- NOTE | 2020-03-30 08:49 | ROE_ITS ---
Date of service: 03/30/20 Time of Service: 08:49 Operative Note Operative Note DATE OF PROCEDURE: 03/30/20 PRE-OP DIAGNOSIS: Pelvic pain POST-OP DIAGNOSIS: same Same with pelvic adhesions PROCEDURE: Operative laparoscopy with extensive lysis of pelvic adhesions and ovarian cystotomy SURGEON: Gemma Paulino ASSISTING SURGEON: Janette Daigle ANESTHESIA TYPE: General LMA/ETT Refer to Anesthesia Record ESTIMATED BLOOD LOSS: 5 PATHOLOGY: none sent COMPLICATIONS: None Patient was transported to: PACU Patient's condition: stable Indications: Chronic pelvic pain with a history of right-sided tubo-ovarian abscess Findings: 3 cm right ovarian cyst. Filmy adhesions of the right fallopian tube to the right ovary with fluid collection. Adhesions of the rectosigmoid colon to the posterior uterus and posterior cul-de-sac with fluid collection Procedure Description: Patient is a 24-year-old female with ongoing chronic pelvic pain. In her history, she does have a history of pelvic inflammatory disease with right tubo-ovarian abscess at the age of 17 which was treated conservatively with IV and oral antibiotics. She has had ongoing unrelenting pelvic pain worse on the left lower quadrant. To this point she wishes for definitive diagnosis. The risk benefits and alternatives of surgery were explained to patient including risk of infection, bleeding, injury to surrounding organs, risk of anesthesia, risk of thromboembolism, risk of need for open laparotomy and risk of recurrence of her pelvic pain with no pathology noted. Full informed consent was obtained. She is taken the operating suite with an IV running where she was placed in the dorsal supine position and endotracheal intubation performed for administration of general anesthesia ease. She then placed in the modified dorsolithotomy position and exam under anesthesia revealed the uterus is midline and mobile without evidence of pelvic fullness. Her bladder was drained for approximately 50 cc of clear yellow urine. At this point speculum was placed into the vaginal vault and a single- tooth tenaculum used to grasp the anterior lip of the cervix. A ZUMI uterine manipulator was placed into the endometrial cavity for uterine manipulation. At this point tenaculum and speculum were both removed and attention was turned to the abdomen. Point half percent Marcaine was used to infiltrate at the umbilicus and a 10 mm vertical incision was made. The anterior abdominal wall was elevated and a varies needle was used and directly inserted into the abdomen. CO2 gas was used to create a pneumoperitoneum to a maximum pressure of 15 mmHg. At this point a bladeless Optiview sleeve and trocar were inserted into the abdomen under direct visualization. The uterus was elevated and there is noted to be a large serous fluid collection around the right adnexal region with adhesion of the fallopian tube to the right ovary and an underlying right ovarian cyst. There is also noted significant thin pelvic adhesions of the rectosigmoid colon to be left pelvic sidewall and posterior uterus. Due to this adhesive disease decision was made for operative laparoscopy and a second and third right and left lower quadrant trocar site were inserted under direct visualization after infiltration of half percent Marcaine. At this point, a grasper was used to elevate the right fallopian tube and Metzenbaum scissors were used to incise the thin adhesions allowing fluid drainage into the cul-de-sac. At this point attention was turned to the rectosigmoid colon area which was gently elevated away from the left pelvic sidewall and with meticulous sharp dissection filmy adhesions were removed allowing the rectosigmoid colon to become free and mobile. All serous fluid was then suction irrigated from the abdomen and incision sites were inspected and hemostatic. At this point attention was turned to the right ovary which with cautery and sharp dissection cystotomy was performed allowing drainage for approximately 10 cc of serous fluid. At this point abdomen was again irrigated with copious amounts of normal saline warmed and then inspected there is no evidence of other adhesive disease throughout the abdomen or pelvis noted. Liver edge smooth and regular without evidence of inflammatory process. At this point procedure was terminated and CO2 gas was initially decreased to 5 mm and all incisional sites inspected and found to be hemostatic. With all hemostasis noted CO2 gas was discontinued and pneumoperitoneum released. All instruments were removed from the abdomen under direct visualization. At this point fascial incision was at the umbilicus was closed using 0 Vicryl suture in a simple interrupted fashion skin edges were reapproximated with 4-0 Monocryl suture and Steri-Strips were placed. ZUMI uterine manipulator that had been previously placed was removed. She was returned to dorsal supine position and woke from anesthesia with ease. Findings: Simple appearing right ovarian cyst. Adhesions of the right fallopian tube to right ovary with fluid collection, relieved. Adhesions of the rectosigmoid colon to the posterior uterus and left pelvic sidewall, lysed extensively. Normal-appearing left ovary, fallopian tubes, and uterus. Smooth and regular liver edge without evidence of inflammatory response. EBL: 5 mL Complications: None apparent pathology: None sent.
[2020-03-30] MEDS: Bupivacaine 0.5% Pres-Free 30 ML VIAL (08:53)
== END 2020-03-30 11:24 | disposition home or self-care (01) ==
PROVIDERS: PCP Nurse Practitioner Family; Visit Provider Obstetrics & Gynecology
PROC: (CPT 49320; principal; 2020-03-30 07:30)
DX: N73.6 Female pelvic peritoneal adhesions (postinfective) (principal); N83.201 Unspecified ovarian cyst, right side; R10.2 Pelvic and perineal pain; G89.29 Other chronic pain
CPT/HCPCS: 58660; 36415; 84702; 84703; J1100; J1885; J2001; J2405; J2704; J3010

== ENCOUNTER 2020-06-18 07:26 | Emergency (ER) | payer MEDICAID, SELFPAY ==
[2020-06-18 07:29] VITALS: BP 120/73; PULSE 83; RESP 18; TEMP 36.4; O2SAT 100
--- NOTE | 2020-06-18 07:36 | ED.GENADUL_ITS ---
Discharge Plan Disposition Patient Disposition: HOME Condition: Good Discharge Details Clinical Impression: Abrasion, corneal Primary Care Provider: Kaitlyn Mckeon ED Provider: Wilfrido Moss [facility] Meds and New Rx's Prescriptions: New erythromycin 5 mg/gram (0.5 %) ointment 0.5 inch ophthalmic (eye) QID Qty: 3.5 RF: 0 Continued ibuprofen 800 mg tablet 800 mg PO Q8H PRNQty: 30 RF: 1 Changed acetaminophen 500 mg Capsule 1,000 mg PO Q6H PRNQty: 0 RF: 0 Discharge Instructions Instructions: Corneal Abrasion (ED) Additional Instructions: Use erythromycin ointment as directed. Ibuprofen and/or acetaminophen as needed for pain. Follow-up with [facility] Saturday for recheck. Return to ED for severe pain, vision change, other concerns Referrals: [facility] [Outside] Medical Decision Making Patient noted to have significant corneal abrasion at the 7 o'clock position left eye. Tetanus will be updated. Erythromycin ointment ordered and will continue to use 4-6 times a day. Ibuprofen and/or acetaminophen for discomfort. Follow-up at [facility] Saturday. Return to ED if worsening pain, change in vision, other concerns HPI General Mode of arrival: ambulatory . Date/Time Provider Initiated Documentation: 06/18/20 07:36 . Limitations to Documentation: no limitations . Information obtained by: patient and RN notes reviewed . HPI Narrative: Patient presents to the ED with left eye pain. Patient was removing paper out of her desk drawer. She brought them up close to her face and somehow sustained a paper cut to the left eye. She does not wear contact lenses but does wear glasses. Did not have them on this morning. Is unable to open her eyes because of pain. Eyes tearing. Vision is a little blurry but more so than what she is used to when not wearing her glasses Related Data Home Medications Medication Instructions Recorded Confirmed ibuprofen 800 mg PO Q8H PRN #30 tab 03/30/20 06/18/20 acetaminophen 1,000 mg PO Q6H PRN #0 cap 06/18/20 06/18/20 erythromycin 0.5 inch OPHTHALMIC (EYE) QID #3.5 06/18/20 g Previous Rx's Medication Instructions Recorded ibuprofen 800 mg PO Q8H PRN #30 tab 03/30/20 acetaminophen 1,000 mg PO Q6H PRN #0 cap 06/18/20 erythromycin 0.5 inch OPHTHALMIC (EYE) QID #3.5 06/18/20 g Allergies Allergy/AdvReac Type Severity Reaction Status Date / Time adhesive Allergy Severe dunham skin Unverified 06/18/20 07:33 after being on tegan Allergy Intermediate vomiting Verified 06/18/20 07:33 red dye Allergy Intermediate Other (See Unverified 06/18/20 07:33 Comment) General Stated Complaint: EyeProblem ANJEL: 4 Review of Systems Constitutional Constitutional: Denies fever(s) Eyes Eyes: Reports eye pain and Reports requires corrective lenses Cardiovascular Cardiovascular: Denies dyspnea Respiratory Respiratory: Denies cough and Denies dyspnea PFSH Medical History Abdominal pain during in second trimester Atypical squamous cells of undetermined significance (ASCUS) on Papanicolaou smear of cervix Contraception management Mirena IUD 08/2014. Removed 10/12/15. Pt didn't like menstrual irregularity. Started OCPs. 08/2016 Nexplanon inserted 09/09/17 Nexplanon out. Didnt like feeling hormonal. Condoms. Depression medication in the past, Has a counselor who she doesn't see often. Joey. (normal spontaneous vaginal delivery) Right tubo-ovarian abscess (05/19/14) Right tubo-ovarian abscess 05/2014. Neg STI testing at time of eval. Rx with ABX and resolved w/o surgery. Tobacco dependence Surgical History H/O hemorrhoidectomy hemorrhoid banding (04/09/17) Status post laparoscopy Lysis of extensive pelvic adhesions and right ovarian cystotomy Family History Mother Tachycardia Father Hypertension Depression Psychosis Mother Heart disease Social History Smoking/Tobacco Use Status: Current every day Tobacco Type: cigarettes Tobacco: How many years used: 1 Quit status: considering quitting Smoking risk assessment performed?: Yes Alcohol Intake: current Alcohol Intake frequency: holidays/special occasions only Drug use: Occasionally Substance use type: marijuana Details: alcohol: t-2, half beer Household members: other Details: FOB is Indra Drew. In relationship since August 2018 Housing: other Details: Patient returned from [place] August 2018 Number of Children: 0 current occupation: Unemployed. Sexually active: Yes What is your relationship status?: never Panel score (0-1 are the most socially isolated patients): 0 What type of physical activity do you participate in: none Seatbelt use: always Do you feel safe at home: Yes Do you feel safe in your relationship?: Yes Female Reproductive History Menstrual control method: other History History 1 Para 1 Hx # Term Pregnancies 1 Multiple births 0 Hx # Pregnancies 0 Ectopic pregnancies 0 AB induced 0 Hx Number of Living Children 1 AB spontaneous 0 Past Pregnancies Del. Date GA/Weeks # Outcome Route Wgt Sex Labor Lgth Anesthes ia Location Prov Complic 07/30/19 39 No Successful vaginal 3600.389 g Female MD Ana Exam Const General: no acute distress HENMT Head: normocephalic and atraumatic Eyes Periorbital: periorbital findings normal Eyelids: eyelids normal Conjunctivae: conjunctival abnormality left conjunctival injection Cornea: corneas abnormal on the left abrasion and fluorescein used Pupils: PERRL EOM: EOM intact bilaterally Resp Effort & Inspection: normal respiratory effort Neuro General: patient alert, patient oriented x3 and moves all extremities Course Vital Signs Vital signs: Vital Signs Temperature 97.5 F L 06/18/20 07:29 Pulse 83 06/18/20 07:29 Respiratory Rate 18 06/18/20 07:29 Blood Pressure 120/73 06/18/20 07:29 Pulse Oximetry 100 06/18/20 07:29 Temperature 97.5 F L 06/18/20 07:29 Temperature Source Temporal Artery Scan 06/18/20 07:29 Pulse 83 06/18/20 07:29 Respiratory Rate 18 06/18/20 07:29 Respiratory Effort Non-Labored 06/18/20 07:34 Blood Pressure 120/73 06/18/20 07:29 Blood Pressure Position Sitting 06/18/20 07:29 Pulse Oximetry 100 06/18/20 07:29 Oxygen Delivery Method Room Air 06/18/20 07:29 Oxygen Flow Rate 0 06/18/20 07:29 Pain Level 7 06/18/20 07:29
[2020-06-18] MEDS: Fluorescein STRIPS 100/BOX 1 MG (07:50)
[2020-06-18] MEDS: Tetracaine 0.5% 4 ML BTL OP (07:50)
[2020-06-18] MEDS: Erythromycin Ophth Oint 3.5 GM TUBE OP (07:59)
[2020-06-18] MEDS: Ibuprofen 600 MG TAB PO (08:11)
== END 2020-06-18 08:10 | disposition home or self-care (01) ==
PROVIDERS: Emergency Provider Emergency Medicine; PCP Nurse Practitioner Family
DX: S05.02XA Injury of conjunctiva and corneal abrasion without foreign body, left eye, initial encounter (principal); W26.2XXA Contact with edge of stiff paper, initial encounter
CPT/HCPCS: 90471; 99284; 99283

== ENCOUNTER 2020-06-19 14:05 | Emergency (ER) | payer MEDICAID, SELFPAY ==
[2020-06-19 14:10] VITALS: BP 130/93; PULSE 83; RESP 18; TEMP 36.6; O2SAT 100
--- NOTE | 2020-06-19 14:48 | ED.GENADUL_ITS ---
Discharge Plan Disposition Patient Disposition: HOME Condition: Good Discharge Details Clinical Impression: Abrasion, corneal Primary Care Provider: Kaitlyn Mckeon ED Provider: Sandra Lopes Home Meds and New Rx's Prescriptions: New ketorolac 0.5 % drops 1 drp ophthalmic (eye) QID Qty: 3 RF: 0 No Action ibuprofen 800 mg tablet 800 mg PO Q8H PRNQty: 30 RF: 1 erythromycin 5 mg/gram (0.5 %) ointment 0.5 inch ophthalmic (eye) QID Qty: 3.5 RF: 0 acetaminophen 500 mg Capsule 1,000 mg PO Q6H PRNQty: 0 RF: 0 Discharge Instructions Instructions: Corneal Abrasion (ED) Additional Instructions: Follow-up with eye doctor tomorrow Wear sunglasses Ibuprofen and Tylenol You may use ketorolac as prescribed Return earlier with vision change or should you have new or worsening complaints Stand Alone Forms: Work Release Discharge Data Discharge Date/Time-TO BE ENTERED AT DEPARTURE: 06/19/20 15:20 Medical Decision Making Visual acuity obtained, please refer to nursing Pupils equal round reactive to light and accommodation Return precautions discussed and patient expressed understanding Cyclogyl you to evaluate pupil, patient reports symptomatic improvement Return precautions discussed patient expressed understanding, placed on [facility] callback list Negative Alena sign Differential Diagnosis Differential Diagnosis: Corneal abrasion, iritis, corneal ulcer HPI General Mode of arrival: ambulatory . Date/Time Provider Initiated Documentation: 06/19/20 14:06 . Limitations to Documentation: no limitations . Information obtained by: patient . HPI Narrative: This 24-year-old female presents with pain to left side. Patient states that she was pulling a piece of paper out of a drawer 2 days ago when she accidentally has a corner of her eye. Patient denies any additional injury. She is finishing the erythromycin ointment as prescribed. She denies any change in her vision. She is going to follow-up with ophthalmology tomorrow. Related Data Home Medications Medication Instructions Recorded Confirmed ibuprofen 800 mg PO Q8H PRN #30 tab 03/30/20 06/19/20 acetaminophen 1,000 mg PO Q6H PRN #0 cap 06/18/20 06/19/20 erythromycin 0.5 inch OPHTHALMIC (EYE) QID #3.5 06/18/20 06/19/20 g ketorolac 1 drp OPHTHALMIC (EYE) QID #3 ml 06/19/20 Previous Rx's Medication Instructions Recorded ibuprofen 800 mg PO Q8H PRN #30 tab 03/30/20 acetaminophen 1,000 mg PO Q6H PRN #0 cap 06/18/20 erythromycin 0.5 inch OPHTHALMIC (EYE) QID #3.5 06/18/20 g ketorolac 1 drp OPHTHALMIC (EYE) QID #3 ml 06/19/20 Allergies Allergy/AdvReac Type Severity Reaction Status Date / Time adhesive Allergy Severe dunham skin Unverified 06/19/20 14:17 after being on tegan Allergy Intermediate vomiting Verified 06/19/20 14:17 red dye Allergy Intermediate Other (See Unverified 06/19/20 14:17 Comment) General Stated Complaint: EyeProblem ANJEL: 4 Review of Systems Narrative: Review of systems obtained x7 aside from where indicated in HPI [facility] Medical History Abdominal pain during in second trimester Atypical squamous cells of undetermined significance (ASCUS) on Papanicolaou smear of cervix Contraception management Mirena IUD 08/2014. Removed 10/12/15. Pt didn't like menstrual irregularity. Started OCPs. 08/2016 Nexplanon inserted 09/09/17 Nexplanon out. Didnt like feeling hormonal. Condoms. Depression medication in the past, Has a counselor who she doesn't see often. Joey. (normal spontaneous vaginal delivery) Right tubo-ovarian abscess (05/19/14) Right tubo-ovarian abscess 05/2014. Neg STI testing at time of eval. Rx with ABX and resolved w/o surgery. Tobacco dependence Surgical History H/O hemorrhoidectomy hemorrhoid banding (04/09/17) Status post laparoscopy Lysis of extensive pelvic adhesions and right ovarian cystotomy Family History Mother Tachycardia Father Hypertension Depression Psychosis Mother Heart disease Social History Smoking/Tobacco Use Status: Current every day Tobacco Type: cigarettes Tobacco: How many years used: 1 Quit status: considering quitting Smoking risk assessment performed?: Yes Alcohol Intake: current Alcohol Intake frequency: holidays/special occasions only Drug use: Occasionally Substance use type: marijuana Household members: other Details: JUAN is Indra Drew. In relationship since August 2018 Housing: other Details: Patient returned from [place] August 2018 Number of Children: 0 current occupation: Unemployed. Sexually active: Yes What is your relationship status?: never Panel score (0-1 are the most socially isolated patients): 0 What type of physical activity do you participate in: none Seatbelt use: always Do you feel safe at home: Yes Do you feel safe in your relationship?: Yes Female Reproductive History Menstrual control method: other History History 1 Para 1 Hx # Term Pregnancies 1 Multiple births 0 Hx # Pregnancies 0 Ectopic pregnancies 0 AB induced 0 Hx Number of Living Children 1 AB spontaneous 0 Past Pregnancies Del. Date GA/Weeks # Outcome Route Wgt Sex Labor Lgth Anesthes ia Location Prov Complic 07/30/19 39 No Successful vaginal 3600.389 g Female MD Ana Exam Const General: cooperative Orientation: alert and oriented x3 Eyes Pupils: PERRL Other: Approximately 3 mm corneal abrasion noted centrally extending over the pupil, no evidence of ulceration or secondary infection Negative Alena sign Course Vital Signs Vital signs: Vital Signs Temperature 36.6 C 06/19/20 14:10 Pulse 83 06/19/20 14:10 Respiratory Rate 18 06/19/20 14:10 Blood Pressure 130/93 H 06/19/20 14:10 Pulse Oximetry 100 06/19/20 14:10 Temperature 36.6 C 06/19/20 14:10 Temperature Source Skin 06/19/20 14:10 Pulse 83 06/19/20 14:10 Respiratory Rate 18 06/19/20 14:10 Respiratory Effort Non-Labored 06/19/20 14:14 Blood Pressure 130/93 H 06/19/20 14:10 Blood Pressure Position Sitting 06/19/20 14:10 Pulse Oximetry 100 06/19/20 14:10 Oxygen Delivery Method Room Air 06/19/20 14:10 Oxygen Flow Rate 0 06/19/20 14:10 Pain Level 8 06/19/20 14:10
[2020-06-19] MEDS: Tetracaine 0.5% 4 ML BTL (15:05)
[2020-06-19] MEDS: Fluorescein STRIPS 100/BOX 1 MG OP (15:06)
--- NOTE | 2020-06-19 15:22 | NUR.NOTE ---
Nursing Note: faxed referral to [facility]. [place]
== END 2020-06-19 15:20 | disposition home or self-care (01) ==
PROVIDERS: Emergency Provider Physician Assistant; PCP Nurse Practitioner Family
DX: S05.02XD Injury of conjunctiva and corneal abrasion without foreign body, left eye, subsequent encounter (principal); W26.2XXD Contact with edge of stiff paper, subsequent encounter
CPT/HCPCS: 99283

== ENCOUNTER 2020-07-10 07:09 | Emergency (ER) | payer MEDICAID, SELFPAY ==
[2020-07-10 07:13] VITALS: BP 124/79; PULSE 75; RESP 16; TEMP 36.6; O2SAT 99
--- NOTE | 2020-07-10 07:22 | W.ED.GENAD ---
Discharge Plan Disposition Patient Disposition: HOME Condition: Good Discharge Details Clinical Impression: Corneal erosion of left eye Primary Care Provider: Kaitlyn Mckeon ED Provider: Wilfrido Moss Meds and New Rx's Prescriptions: New erythromycin 5 mg/gram (0.5 %) Ointment See Rx Instructions .ROUTE .COMPLEX Qty: 3.5 RF: 0 ketorolac 0.5 % drops 1 drp ophthalmic (eye) QID Qty: 5 RF: 0 Continued acetaminophen 500 mg Capsule 1,000 mg PO Q6H PRNQty: 0 RF: 0 Discharge Instructions Additional Instructions: This appears to be corneal erosion related to previous corneal abrasion. Start antibiotic ointment and pick up attendant ketorolac eye drops. Take tylenol as needed. Follow up with [facility], call on Saturday. Return to ED for worse pain, vision change, fever Referrals: [facility] [Outside] Discharge Data Discharge Date/Time-TO BE ENTERED AT DEPARTURE: 07/10/20 08:39 Medical Decision Making Patient with recurrent left eye pain and tearing without visual change approximately 2 weeks status post corneal abrasion related to paper cut. She reports no change in vision. She did not call or follow back up with Ciaran when symptoms restarted. She has a round floor seen uptake inferior to the pupil. This is seen best with Solis lamp. Minimal uptake using slit lamp cobalt light. Corneal exam with slit lamp reveals no obvious ulceration, edema. There is no cell or flare in the anterior chamber. Suspect that this is recurrent corneal erosion related to previous corneal abrasion earlier this month. Will restart erythromycin ointment. Will prescribe ketorolac eyedrops to help with pain. Tylenol for oral pain relief. Needs to follow-up with Ciaran this week. Return to ED if change in vision, headache, fever, worsening pain. HPI General Mode of arrival: ambulatory. Date/Time Provider Initiated Documentation: 07/10/20 07:20. Limitations to Documentation: no limitations. Information obtained by: patient, RN notes reviewed and old records reviewed. HPI Narrative: Patient presents to ED with left eye pain. Patient seen in the ED earlier this month with left corneal abrasion related to paper cut. She was treated with erythromycin and subsequently followed up with [facility] and was deemed fine. She was prescribed ketorolac eyedrops which she never picked up. About 10 days ago she woke up in the middle of the night with left eye discomfort. She felt like there was something in it. She rubbed at it a little bit and went back to sleep. Since then the eye has continued to have pain, tearing, increasing redness. She has had no change in vision. She did not call a follow-up with Ciar[facility]. This morning unable to open her eye because of pain and swelling. Related Data Home Medications Medication Instructions Recorded Confirmed acetaminophen 1,000 mg PO Q6H PRN #0 cap 06/18/20 07/10/20 erythromycin See Rx Instructions .ROUTE 07/10/20 .COMPLEX #3.5 g ketorolac 1 drp OPHTHALMIC (EYE) QID #5 ml 07/10/20 Previous Rx's Medication Instructions Recorded acetaminophen 1,000 mg PO Q6H PRN #0 cap 06/18/20 erythromycin See Rx Instructions .ROUTE 07/10/20 .COMPLEX #3.5 g ketorolac 1 drp OPHTHALMIC (EYE) QID #5 ml 07/10/20 Allergies Allergy/AdvReac Type Severity Reaction Status Date / Time adhesive Allergy Severe dunham skin Unverified 07/10/20 07:20 after being on tegan Allergy Intermediate vomiting Verified 07/10/20 07:20 red dye Allergy Intermediate Other (See Unverified 07/10/20 07:20 Comment) General Stated Complaint: EyeProblem ANJEL: 4 Review of Systems Constitutional Constitutional: Denies fever(s) and Denies headache(s) Eyes Eyes: Denies change in vision, Reports eye discharge (clear), Denies loss of vision, Denies other visual disturbances and Reports eye pain ENT Ears, Nose, Mouth, and Throat: Denies facial pain and Denies headache(s) Neurologic Neurologic: Denies confusion, Denies headache(s), Denies loss of vision and Denies other visual disturbances Psychiatric Psychiatric: Denies confusion [facility] Medical History Abdominal pain during in second trimester Atypical squamous cells of undetermined significance (ASCUS) on Papanicolaou smear of cervix Contraception management Mirena IUD 08/2014. Removed 10/12/15. Pt didn't like menstrual irregularity. Started OCPs. 08/2016 Nexplanon inserted 09/09/17 Nexplanon out. Didnt like feeling hormonal. Condoms. Depression medication in the past, Has a counselor who she doesn't see often. Joey. (normal spontaneous vaginal delivery) Right tubo-ovarian abscess (05/19/14) Right tubo-ovarian abscess 05/2014. Neg STI testing at time of eval. Rx with ABX and resolved w/o surgery. Tobacco dependence Surgical History H/O hemorrhoidectomy hemorrhoid banding (04/09/17) Status post laparoscopy Lysis of extensive pelvic adhesions and right ovarian cystotomy Family History Mother Tachycardia Father Hypertension Depression Psychosis Mother Heart disease Social History Smoking/Tobacco Use Status: Current every day Tobacco Type: cigarettes Tobacco: How many years used: 1 Quit status: considering quitting Smoking risk assessment performed?: Yes Alcohol Intake: current Alcohol Intake frequency: holidays/special occasions only Drug use: Occasionally Substance use type: marijuana Household members: other Details: FOB is Indra Drew. In relationship since August 2018 Housing: other Details: Patient returned from [place] August 2018 Number of Children: 0 current occupation: Unemployed. Sexually active: Yes What is your relationship status?: never Panel score (0-1 are the most socially isolated patients): 0 What type of physical activity do you participate in: none Seatbelt use: always Do you feel safe at home: Yes Do you feel safe in your relationship?: Yes Female Reproductive History Menstrual control method: other History History 1 Para 1 Hx # Term Pregnancies 1 Multiple births 0 Hx # Pregnancies 0 Ectopic pregnancies 0 AB induced 0 Hx Number of Living Children 1 AB spontaneous 0 Past Pregnancies Del. Date GA/Weeks # Outcome Route Wgt Sex Labor Lgth Anesthesia Location Prov Complic 07/30/19 39 No Successful vaginal 3600.389 g Female MD Ana Exam Const General: cooperative, well developed and well groomed [facility] Head: normocephalic and atraumatic Face and sinus: normal facial exam Eyes Periorbital: periorbital findings normal Eyelids: eyelid abnormality (left eyelids puffy and swollen) Conjunctivae: conjunctival abnormality left conjunctival injection and discharge (clear) Sclera: sclerae normal Cornea: corneas abnormal on the left fluorescein used (3-4 mm round area of uptake inferior to pupil) and abrasion; without dendrites present, without edema, with no foreign body noted and without keratoconus opacity and fluorescein used Pupils: PERRL EOM: EOM intact bilaterally Neck Neck: trachea midline and supple Resp Effort & Inspection: normal respiratory effort Skin General skin exam: no erythema Rashes: no rashes Neuro General: patient alert, patient oriented x3, gait normal and moves all extremities Cognition: normal cognition Speech: speech normal Course Vital Signs Vital signs: Vital Signs Temperature 97.9 F 07/10/20 07:13 Pulse 75 07/10/20 07:13 Respiratory Rate 16 07/10/20 07:13 Blood Pressure 124/79 07/10/20 07:13 Pulse Oximetry 99 07/10/20 07:13 Temperature 97.9 F 07/10/20 07:13 Temperature Source Temporal Artery Scan 07/10/20 07:13 Pulse 75 07/10/20 07:13 Respiratory Rate 16 07/10/20 07:13 Respiratory Effort Non-Labored 07/10/20 07:19 Blood Pressure 124/79 07/10/20 07:13 Blood Pressure Position Sitting 07/10/20 07:13 Pulse Oximetry 99 07/10/20 07:13 Oxygen Delivery Method Room Air 07/10/20 07:13 Oxygen Flow Rate 0 07/10/20 07:13 Pain Level 8 07/10/20 07:13
[2020-07-10] MEDS: Fluorescein STRIPS 100/BOX 1 MG ×2 (07:36→07:59)
[2020-07-10] MEDS: Tetracaine 0.5% 4 ML BTL (07:36)
[2020-07-10] MEDS: Erythromycin Ophth Oint 3.5 GM TUBE OS (08:31)
== END 2020-07-10 08:39 | disposition home or self-care (01) ==
PROVIDERS: Emergency Provider Emergency Medicine; PCP Nurse Practitioner Family
DX: S05.02XD Injury of conjunctiva and corneal abrasion without foreign body, left eye, subsequent encounter (principal); W26.2XXD Contact with edge of stiff paper, subsequent encounter
CPT/HCPCS: 99283

== ENCOUNTER 2020-08-29 09:35 | Outpatient (REF) | payer MEDICAID, SELFPAY ==
[2020-08-31 11:27] LABS: COVID-19 RT-PCR UVMMC Result Negative (Negative)
== END 2020-08-29 09:36 | disposition home or self-care (01) ==
LOC: NCHCN 09:35
PROVIDERS: PCP Nurse Practitioner Family; Visit Provider Nurse Practitioner Family
DX: R05 Cough (principal); Z20.822 Contact with and (suspected) exposure to COVID-19
CPT/HCPCS: U0003

== ENCOUNTER 2020-08-31 13:50 | Outpatient (CLI) | payer MEDICAID, SELFPAY ==
--- NOTE | 2020-08-31 | DI.RAD_ITS ---
Exam(s) XR CHEST 2V PA LATERAL EXAM: XR CHEST 2V PA LATERAL CLINICAL HISTORY: COUGH, R05, RALES, O2 SAT 94%. TECHNIQUE: 2D digital imaging was performed. COMPARISON: Chest x-ray May 2014 FINDINGS: Heart size is normal. The mediastinum is not widened. Lungs are clear. No infiltrates nor pleural effusions. IMPRESSION: No acute pulmonary findings. DATA REPOSITORY: RADIATION DOSE DELIVERED:
== END 2020-08-31 14:10 ==
PROVIDERS: PCP Nurse Practitioner Family; Visit Provider Nurse Practitioner Family
DX: R05 Cough (principal); R09.89 Other specified symptoms and signs involving the circulatory and respiratory systems
CPT/HCPCS: 71046

== ENCOUNTER 2020-09-12 14:14 | Outpatient (REF) | payer MEDICAID, SELFPAY ==
[2020-09-12 20:40] LABS: Abs Immature Grans 0.03 10^3/uL (0.0-0.06); Absolute Basophil Count 0.04 10^3/uL (0.0-0.2); Absolute Eosinophil Count 0.07 10^3/uL (0.0-0.7); Absolute Lymphocyte Count 1.13 10^3/uL (1.2-3.4); Absolute Monocyte Count 0.95 10^3/uL (0.1-0.8); Absolute Neutrophil Count 5.89 10^3/uL (1.2-6.7); Basophils % 0.5; Eosinophils % 0.9; HCT 43.7 % (36.0-46.0); HGB 13.6 g/dL (11.2-15.7); Immature Grans % 0.4; Lymphocytes % 13.9; MCHC 31.1 % (32.0-36.0); MCV 83.4 fL (80-95); MPV 9.3 fL (8.0-11.0); Monocytes % 11.7; Neutrophils % 72.6; Nucleated RBC 0 %; Platelet Count 523 10^3/uL (130-400); RBC 5.24 10^6/uL (3.93-5.22); RDW 15.2 % (11.7-14.6); RDW-SD 46.2 fL; WBC 8.11 10^3/uL (4.4-10.8)
[2020-09-12 20:59] LABS: Mono Screening Negative (Negative)
[2020-09-12 21:34] LABS: ALT 20 U/L (14-59); AST 15 U/L (15-37); Albumin 3.8 g/dL (3.4-5.0); Alkaline Phosphatase 80 U/L (46-116); Anion Gap 9.7 mmol/L (3-11); BUN 5 mg/dL (7-18); Bilirubin, Total 0.9 mg/dL (0.2-1.0); CO2 25.3 mmol/L (21.0-32.0); CREATININE 0.6 mg/dL (0.55-1.02); Calcium 9.4 mg/dL (8.5-10.1); Chloride 102 mmol/L (98-107); Glucose 82 mg/dL (74-106); Potassium 4.2 mmol/L (3.5-5.1); Sodium 137 mmol/L (136-145); Total Protein 7.4 g/dL (6.4-8.2)
[2020-09-14 13:51] LABS: COVID-19 RT-PCR UVMMC Result Negative (Negative)
== END 2020-09-12 14:15 | disposition home or self-care (01) ==
LOC: LBN 14:14
PROVIDERS: PCP Nurse Practitioner Family; Visit Provider Nurse Practitioner Family
DX: J02.9 Acute pharyngitis, unspecified (principal); R53.83 Other fatigue; J06.9 Acute upper respiratory infection, unspecified; Z20.822 Contact with and (suspected) exposure to COVID-19
CPT/HCPCS: 80053; U0003; 85025; 86308

== ENCOUNTER 2020-11-14 11:47 | Emergency (ER) | payer MEDICAID, SELFPAY ==
[2020-11-14 11:56] VITALS: BP 129/62; PULSE 88; RESP 16; TEMP 36.1; O2SAT 100
--- NOTE | 2020-11-14 12:28 | ED.GENADUL_ITS ---
Discharge Plan Disposition Patient Disposition: HOME Condition: Stable Discharge Details Clinical Impression: Recurrent erosion of cornea, left eye Primary Care Provider: Kaitlyn Mckeon ED Provider: Devora Bucio Home Meds and New Rx's Prescriptions: No Action acetaminophen 500 mg Capsule 1,000 mg PO Q6H PRNQty: 0 RF: 0 Discharge Instructions Instructions: Eye Pain (ED) Additional Instructions: I did speak with Dr. Wagoner with [facility]. They do recommend that you keep your appointment in the morning. Please continue to use sterile artificial tears. At this time there is no evidence for infection. Please take Tylenol or Ibuprofen with food every 4-6 hours as needed for pain and swelling. Stand Alone Forms: Work Release Referrals: Kaitlyn Mckeon [Primary Care Provider] - 1 week Discharge Data Discharge Date/Time-TO BE ENTERED AT DEPARTURE: 11/14/20 13:11 Medical Decision Making 24-year-old female presents to the ER chief complaint of left eye pain. She reports that she had a corneal erosion approximately 1 month ago with [facility] at [facility]. She reports that last couple days she has had some increased eye pain. And some tearing. Denies any purulent drainage. EOMs are intact on my initial exam pupils are bilateral reactive. She does have some slight corneal erythema. Visual acuity bilaterally 20/40. 1250: Spoke with Dr. Wagoner with [facility] regarding patient case and details. She is familiar with the patient. She recommends artificial tears and to keep her appointment which she has scheduled for tomorrow. She does not recommend fluorescein or Solis lamp exam at this time due to a previously known corneal abrasion and erosion. Will instruct patient to follow-up with [facility] as scheduled tomorrow. Patient discharged from department with instructions. This text was generated using Lever dictation system, please disregard any oddities of phrase or misspellings. HPI General Mode of arrival: ambulatory . Date/Time Provider Initiated Documentation: 11/14/20 12:22 . Limitations to Documentation: no limitations . Information obtained by: patient . HPI Narrative: 24-year-old female presents to the ER chief complaint of left eye pain. She reports that she had a corneal erosion approximately 1 month ago with replacement at [facility]. She reports that last couple days she has had some increased eye pain. And some tearing. Denies any purulent drainage. EOMs are intact on my initial exam pupils are bilateral reactive. She does have some slight corneal erythema. Related Data Home Medications Medication Instructions Recorded Confirmed acetaminophen 1,000 mg PO Q6H PRN #0 cap 06/18/20 11/14/20 Previous Rx's Medication Instructions Recorded acetaminophen 1,000 mg PO Q6H PRN #0 cap 06/18/20 Allergies Allergy/AdvReac Type Severity Reaction Status Date / Time adhesive Allergy Severe dunham skin Unverified 11/14/20 12:04 after being on tegan Allergy Intermediate vomiting Verified 11/14/20 12:04 red dye Allergy Intermediate Other (See Unverified 11/14/20 12:04 Comment) General Stated Complaint: EyeProblem ANJEL: 4 Review of Systems All systems reviewed & are unremarkable except as noted in HPI and below Constitutional Constitutional: Denies headache(s) Eyes Eyes: Reports system reviewed and no additional complaints, except as documented, Denies loss of vision, Denies other visual disturbances, Reports eye pain and Denies seeing flashes Comments: tearing and pain ENT Ears, Nose, Mouth, and Throat: Denies headache(s) Neurologic Neurologic: Denies headache(s) and Denies loss of vision PFSH Medical History Abdominal pain during in second trimester Atypical squamous cells of undetermined significance (ASCUS) on Papanicolaou smear of cervix Contraception management Mirena IUD 08/2014. Removed 10/12/15. Pt didn't like menstrual irregularity. Started OCPs. 08/2016 Nexplanon inserted 09/09/17 Nexplanon out. Didnt like feeling hormonal. Condoms. Depression medication in the past, Has a counselor who she doesn't see often. Joey. (normal spontaneous vaginal delivery) Pelvic pain Right tubo-ovarian abscess (05/19/14) Right tubo-ovarian abscess 05/2014. Neg STI testing at time of eval. Rx with ABX and resolved w/o surgery. Tobacco dependence Surgical History H/O hemorrhoidectomy hemorrhoid banding (04/09/17) Status post laparoscopy Lysis of extensive pelvic adhesions and right ovarian cystotomy Family History Mother Tachycardia Father Hypertension Depression Psychosis Mother Heart disease Social History Smoking/Tobacco Use Status: Current every day Tobacco Type: cigarettes Tobacco: How many years used: 1 Quit status: considering quitting Smoking risk assessment performed?: Yes Alcohol Intake: current Alcohol Intake frequency: holidays/special occasions only Drug use: Occasionally Substance use type: marijuana Household members: other Details: FOB is Indra Drew. In relationship since August 2018 Housing: other Details: Patient returned from [place] August 2018 Number of Children: 0 current occupation: Unemployed. Sexually active: Yes What is your relationship status?: never Panel score (0-1 are the most socially isolated patients): 0 What type of physical activity do you participate in: none Seatbelt use: always Do you feel safe at home: Yes Do you feel safe in your relationship?: Yes Female Reproductive History Menstrual control method: other History History 1 Para 1 Hx # Term Pregnancies 1 Multiple births 0 Hx # Pregnancies 0 Ectopic pregnancies 0 AB induced 0 Hx Number of Living Children 1 AB spontaneous 0 Past Pregnancies Del. Date GA/Weeks # Outcome Route Wgt Sex Labor Lgth Anesthes ia Lo cation Prov Complic 07/30/19 39 No Successful vaginal 3600.389 g Female MD Ana Exam Narrative Exam Narrative: Constitutional: Alert and oriented x3. Appears stated age. Normal body habitus. Head: Normocephalic, no trauma. Eyes: Pupils PERRLA, Red reflex noted, EOM's intact. Left upper and lower eyelids slightly swollen. Clear tears noted, mild conjunctival injection noted. No signs of bacterial conjunctivitis no purulent drainage noted. No crust. ENT: Bilateral TM's WNL, External ear normal to inspection, no mastoid TTP, swelling, or erythema, Nasal turbinates WNL, no nasal discharge. Normal den tition, Posterior pharynx WNL, no exudate. Chest: RRR, Normal S1, S2, distal pulses intact. Resp: Lungs clear to auscultation bilaterally, no wheezes, rales, or rhonchi. Course Vital Signs Vital signs: Vital Signs Temperature 36.1 C L 11/14/20 11:56 Pulse 88 11/14/20 11:56 Respiratory Rate 16 11/14/20 11:56 Blood Pressure 129/62 11/14/20 11:56 Pulse Oximetry 100 11/14/20 11:56 Temperature 36.1 C L 11/14/20 11:56 Temperature Source Skin 11/14/20 11:56 Pulse 88 11/14/20 11:56 Respiratory Rate 16 11/14/20 11:56 Respiratory Effort 11/14/20 12:02 Blood Pressure 129/62 11/14/20 11:56 Blood Pressure Position Sitting 11/14/20 11:56 Pulse Oximetry 100 11/14/20 11:56 Oxygen Delivery Method Room Air 11/14/20 11:56 Oxygen Flow Rate 0 11/14/20 11:56 Pain Level 8 11/14/20 11:56
== END 2020-11-14 13:11 | disposition home or self-care (01) ==
PROVIDERS: Emergency Provider Registered Nurse Emergency; PCP Nurse Practitioner Family
DX: H18.832 Recurrent erosion of cornea, left eye (principal)
CPT/HCPCS: 99281

== ENCOUNTER 2020-12-01 11:30 | Outpatient (REF) | payer MEDICAID, SELFPAY | END 2020-12-01 11:31 | disposition home or self-care (01) | LOC: LBN 11:30 | PROVIDERS: PCP Nurse Practitioner Family; Visit Provider Physician Assistant Medical | DX: R30.9 Painful micturition, unspecified (principal) | CPT/HCPCS: 87077; 87086; 87186 ==

== ENCOUNTER 2020-12-08 01:30 | Outpatient (CLI) | payer MEDICAID, SELFPAY ==
--- NOTE | 2020-12-08 08:45 | DI.US_ITS ---
Exam(s) US PELVIS TRANSVAGINAL EXAM: US PELVIS TRANSVAGINAL CLINICAL HISTORY: pelvic pain,R10.2 TECHNIQUE: Ultrasound of the pelvis was performed both transabdominal and transvaginal. COMPARISON: US US PELVIS TRANSVAGINAL from 09/15/2019 FINDINGS: UTERUS: Nongravid and anteverted Measures 5.8 cm length x 2 cm AP x 3.2 cm wide. There are no uterine fibroids. Endometrial thickness measures 5 mm. There is no fluid in the endometrial canal. CERVIX: There are no obvious nabothian cysts. RIGHT OVARY: Measures 2.7 x 2.7 x 1.4 cm No significant cysts nor masses evident in the right ovary. LEFT OVARY: Measures 4 1 x 2.0 x 2 cm Contains a 1.2 x 1.1 x 1.2 cm peripheral cyst. Also contains a 2.6 x 2 finding which has appearance of a probable hemorrhagic cyst. CUL-DE-SAC: No free fluid evident. IMPRESSION: 1. Normal appearing uterus and age-appropriate endometrium. 2. Two cysts in the left ovary as described above 1 simple on the other probable hemorrhagic-type. 3. No free fluid evident in the adnexal regions and cul-de-sac. DATA REPOSITORY:
== END 2020-12-08 01:50 ==
PROVIDERS: PCP Nurse Practitioner Family; Visit Provider Obstetrics & Gynecology
DX: R10.2 Pelvic and perineal pain (principal); N83.292 Other ovarian cyst, left side
CPT/HCPCS: 76830; 76856

== ENCOUNTER 2020-12-26 22:12 | Emergency (ER) | payer MEDICAID, SELFPAY ==
[2020-12-26 22:17] VITALS: BP 129/68; PULSE 80; RESP 18; TEMP 36.9; O2SAT 100
--- NOTE | 2020-12-26 22:23 | ED.GENADUL_ITS ---
Discharge Plan Disposition Patient Disposition: HOME Condition: Improving Discharge Details Clinical Impression: Abrasion of cornea, left Primary Care Provider: Kaitlyn Mckeon ED Provider: Silvestre Sepulveda Home Meds and New Rx's Prescriptions: Continued gabapentin 100 mg capsule 100 mg PO BID Qty: 60 RF: 6 acetaminophen 500 mg Capsule 1,000 mg PO Q6H PRNQty: 0 RF: 0 Discharge Instructions Instructions: Corneal Abrasion (ED) Additional Instructions: Continue your routine medications. Please follow-up with [facility] eye care tomorrow. Our care management team will place a referral on your behalf, but as you are there patient, please call the office directly at noon tomorrow for an appointment in the afternoon. You received Cyclogyl drops to ease the discomfort in your eye. Return to the ER for any emergent concern. Medical Decision Making 25-year-old female who was recently been followed by local elevator repair mechanic for a left eye corneal abrasion which required recent placement of amniotic membrane which was reviewed moved this morning and showed resolution of her corneal abrasion. This evening she was playing with her young infant daughter when the child accidentally slapped her in the face with her hand and poked in the eye. The patient has a left inferior corneal abrasion. Alena sign was negative. She states that she has been intolerant of erythromycin ointment in the past. I instilled Cyclogyl drops. She will follow-up with [facility] eye care tomorrow. She declined the offer for oral analgesic at home. HPI General Mode of arrival: ambulatory . Date/Time Provider Initiated Documentation: 12/26/20 22:20 . Limitations to Documentation: no limitations . Information obtained by: patient . History of Present Illness 25 year old F presents to the emergency department with the chief complaint of Poked in left eye by daughter's finger, described as mild, Quality is described as dull, and is localized to the eyes and left. Patient reports no radiation. Patient started experiencing this minute(s) and it has been constant. No relieving factors improve symptom(s), No exacerbating factors reported . Patient notes no other symptoms.. Patient did receive the following treatments prior to arrival, none Related Data Home Medications Medication Instructions Recorded Confirmed acetaminophen 1,000 mg PO Q6H PRN #0 cap 06/18/20 12/16/20 gabapentin 100 mg capsule 100 mg PO BID #60 cap 12/20/20 12/26/20 Previous Rx's Medication Instructions Recorded acetaminophen 1,000 mg PO Q6H PRN #0 cap 06/18/20 gabapentin 100 mg capsule 100 mg PO BID #60 cap 12/20/20 Allergies Allergy/AdvReac Type Severity Reaction Status Date / Time adhesive Allergy Severe dunham skin Unverified 12/26/20 22:19 after being on tegan Allergy Intermediate vomiting Verified 12/26/20 22:19 red dye Allergy Intermediate Other (See Unverified 12/26/20 22:19 Comment) General Stated Complaint: EyeProblem ANJEL: 4 Review of Systems Narrative: Otherwise healthy young female. 4 systems reviewed and otherwise negative [facility] Active Problem List Recurrent erosion of cornea, left eye (Acute) Pelvic pain (Chronic) Abrasion, corneal (Acute) Status post laparoscopy (Acute) Sciatica (Acute) Atypical squamous cells of undetermined significance (ASCUS) on Papanicolaou smear of cervix (Acute) Tobacco dependence (Acute) H/O hemorrhoidectomy (Chronic) Depression (Chronic) Medical History Abdominal pain during in second trimester (normal spontaneous vaginal delivery) Right tubo-ovarian abscess (05/19/14) Surgical History (Updated 12/16/20 @ 20:02 by Janette Daigle MD) hemorrhoid banding (04/09/17) Family History Mother Tachycardia Father Hypertension Depression Psychosis Mother Heart disease Social History Smoking/Tobacco Use Status: Former Tobacco Use Tobacco: How many years used: 1 Quit status: considering quitting Smoking risk assessment performed?: Yes Alcohol Intake: current Alcohol Intake frequency: holidays/special occasions only Drug use: Occasionally Substance use type: marijuana Household members: significant other, children and other Details: Christine Stover (07/2019) Housing: other Number of Children: 1 current occupation: Unemployed. Sexually active: Yes What is your relationship status?: never Panel score (0-1 are the most socially isolated patients): 0 What type of physical activity do you participate in: none Seatbelt use: always Do you feel safe at home: Yes Do you feel safe in your relationship?: Yes Female Reproductive History Menstrual control method: other History History 1 Para 1 Hx # Term Pregnancies 1 Multiple births 0 Hx # Pregnancies 0 Ectopic pregnancies 0 AB induced 0 Hx Number of Living Children 1 AB spontaneous 0 Past Pregnancies Del. Date GA/Weeks # Outcome Route Wgt Sex Labor Lgth Anesthes ia Location Prov Complic 07/30/19 39 No Successful vaginal 3600.389 g Female MD Ana Delivery Date: 07/30/19 Janette Dennison Exam Narrative Exam Narrative: GEN: awake, alert, oriented 3. Pleasant, well groomed, interactive. HEAD: Normocephalic, atraumatic ENT: Mucous membranes moist, oropharynx unremarkable, External ear exam unremarkable EYES: PERRL, EOMI, left eye injected. Fluorescein exam shows corneal abrasion left eye, inferior, negative Alena sign. No foreign body appreciated EXT: Full ROM, no edema, no rash Neuro: Grossly normal neurologic exam, conversant, interactive. Psych: Speech fluent, thoughts congruent, affect normal Course Vital Signs Vital signs: Vital Signs Temperature 36.9 C 12/26/20 22:17 Pulse 80 12/26/20 22:17 Respiratory Rate 18 12/26/20 22:17 Blood Pressure 129/68 12/26/20 22:17 Pulse Oximetry 100 12/26/20 22:17 Temperature 36.9 C 12/26/20 22:17 Temperature Source Temporal Artery Scan 12/26/20 22:17 Pulse 80 12/26/20 22:17 Respiratory Rate 18 12/26/20 22:17 Blood Pressure 129/68 12/26/20 22:17 Blood Pressure Position Sitting 12/26/20 22:17 Pulse Oximetry 100 12/26/20 22:17 Oxygen Delivery Method Room Air 12/26/20 22:17 Oxygen Flow Rate 0 12/26/20 22:17 Pain Level 6 12/26/20 22:17
--- NOTE | 2020-12-26 22:35 | NUR.NOTE ---
Referral faxed to [facility] to follow up 12/27/20 for corneal abrasion. Nursing Note:
[2020-12-26] MEDS: Balanced Salt Solution 15 ML BTL OP (22:37)
[2020-12-26] MEDS: Tetracaine 0.5% 4 ML BTL (22:38)
== END 2020-12-26 22:58 | disposition home or self-care (01) ==
PROVIDERS: Emergency Provider Emergency Medicine; PCP Nurse Practitioner Family
DX: S05.8X2A Other injuries of left eye and orbit, initial encounter (principal); W50.0XXA Accidental hit or strike by another person, initial encounter
CPT/HCPCS: 99283

== ENCOUNTER 2021-01-23 03:25 | Outpatient (CLI) | payer MEDICAID, SELFPAY ==
[2021-01-23 09:12] LABS: HCT 42.7 % (36.0-46.0); HGB 13.6 g/dL (11.2-15.7); MCH 27.5 pg (27.0-33.0); MCHC 31.9 % (32.0-36.0); MCV 86.3 fL (80-95); MPV 9.1 fL (8.0-11.0); Platelet Count 367 10^3/uL (130-400); RBC 4.95 10^6/uL (3.93-5.22); RDW 13.2 % (11.7-14.6); RDW-SD 41.4 fL; WBC 6.98 10^3/uL (4.4-10.8)
[2021-01-23 10:14] LABS: Source Nasal/Nares
[2021-01-23 10:23] LABS: HCG Qual (Serum) Negative
[2021-01-23 12:30] LABS: COVID-19 PCR Negative (Negative)
== END 2021-01-23 03:26 | disposition home or self-care (01) ==
LOC: LBO 03:25
PROVIDERS: PCP Nurse Practitioner Family; Visit Provider Obstetrics & Gynecology Gynecology
DX: Z01.818 Encounter for other preprocedural examination (principal); Z20.822 Contact with and (suspected) exposure to COVID-19
CPT/HCPCS: 36415; 85027; 86850; 86900; 86901; 87635; 84703

== ENCOUNTER 2021-01-25 06:14 | Day surgery (SDC) | payer MEDICAID, SELFPAY ==
[2021-01-25] VITALS (12 sets, daily range): BP systolic 91–121; BP diastolic 40–82; PULSE 58–82; RESP 11–20; TEMP 36.2–36.6; O2SAT 94–100; BMI 30.2
--- NOTE | 2021-01-25 06:51 | ANES.PREOP_ITS ---
General Info Date of Service Date Performed: 01/25/21 Height: 4 ft 11 in Weight: 67.9 kg Body Mass Index (BMI): 30.2 Surgical Procedure: Operation Date: 01/25/21 07:40 Proposed Procedures Side Surgeon p Oophorectomy Laparoscopic w/fallopian tube removal Right Janette Daigle MD s Appendectomy Laparoscopic Jennifer Salguero MD Meds Allergies and Home Medications Allergies Allergy/AdvReac Type Severity Reaction Status Date / Time adhesive Allergy Severe dunham skin Unverified 01/25/21 06:29 after being on tegan Allergy Severe Anaphylaxis Verified 01/25/21 06:30 red dye Allergy Intermediate Other (See Unverified 01/25/21 06:29 Comment) Home Medication Medication Instructions Recorded gabapentin 100 mg capsule 100 mg PO BID #60 cap 12/20/20 Current Visit Medications: Current Medications Generic Name Dose Route Start Last Admin Trade Name Freq PRN Reason Stop Dose Admin Acetaminophen 1,000 mg 01/25/21 06:00 Acetaminophen 500 Mg Tab PO 02/23/21 23:59 PREOP ARIAN Celecoxib 200 mg 01/25/21 06:00 Celecoxib 200 Mg Cap PO 02/23/21 23:59 PREOP ARIAN Gabapentin 600 mg 01/25/21 06:00 Gabapentin 300 Mg Cap PO 02/23/21 23:59 PREOP ARIAN Ringer's Solution 1,000 mls @ 125 mls/hr 01/25/21 06:00 IV 02/23/21 23:59 INFUSION ARIAN IV Miscellaneous Supplies 1 each 01/25/21 06:00 Iv Access IV 02/23/21 23:59 DIRECTED ARIAN Sodium Chloride 0 ml 01/25/21 06:00 Normal Saline Flush 10 Ml Syr IV 02/23/21 23:59 PRN PRN Sodium Chloride 0 ml 01/25/21 06:00 Normal Saline 10 Ml Vial IJ 02/23/21 23:59 DIRECTED PRN Sterile Water 0 ml 01/25/21 06:00 Water,Injection,Sterile 10 Ml Vial IJ 02/23/21 23:59 DIRECTED PRN PFSH Active Problems Active Problems: Problem Status Onset Code Pre-op exam Z01.818 Abrasion of cornea, left S05.02XA Recurrent erosion of cornea, left eye H18.832 Pelvic pain R10.2 Abrasion, corneal S05.00XA Status post laparoscopy Z98.890 Sciatica M54.30 Atypical squamous cells of undetermined significance (ASCUS) on Papanicolaou smear of cervix R87.610 Tobacco dependence F17.200 H/O hemorrhoidectomy Z98.890 Depression F32.9 Medical History Active Problem List Recurrent erosion of cornea, left eye (Acute) Pelvic pain (Chronic) Abrasion, corneal (Acute) Status post laparoscopy (Acute) Sciatica (Acute) Atypical squamous cells of undetermined significance (ASCUS) on Papanicolaou smear of cervix (Acute) Tobacco dependence (Acute) H/O hemorrhoidectomy (Chronic) Depression (Chronic) Medical History Abdominal pain during in second trimester (normal spontaneous vaginal delivery) Right tubo-ovarian abscess (05/19/14) Surgical History Surgical History hemorrhoid banding (04/09/17) Tobacco Smoking/Tobacco Use Status: Former Tobacco Use Tobacco: How many years used: 1 Quit Status: considering quitting Alcohol Alcohol Intake: current Alcohol intake frequency: holidays/special occasions only Substance Use Substance use: Occasionally Substance use type: marijuana Prental History History 1 Para 1 Hx # Term Pregnancies 1 Multiple births 0 Hx # Pregnancies 0 Ectopic pregnancies 0 AB induced 0 Hx Number of Living Children 1 AB spontaneous 0 Past Pregnancies Del. Date GA/Weeks # Outcome Route Wgt Sex Labor [facility] No Successful vaginal 3600.389 g Female MD Ana Delivery Date: 07/30/19 Janette Dennison Vital Signs and Lab Results Vital Signs Most Recent Vital Signs in EMR: Most Recent Vital Signs Temp Pulse Resp BP Pulse Ox 36.6 C 82 16 121/82 98 01/25/21 06:21 01/25/21 06:21 01/25/21 06:21 01/25/21 06:21 01/25/21 06:21 Lab Results Blood Type / Crossmatch: Patient ABO/Rh A Positive 01/23/21 09:01 01/23/21 Antibody Screen NEGATIVE 01/23/21 09:01 01/23/21 Complete Blood Count: White Blood Count 6.98 10^3/uL (4.4-10.8) 01/23/21 09:01 01/23/21 Red Blood Count 4.95 10^6/uL (3.93-5.22) 01/23/21 09:01 01/23/21 Hemoglobin 13.6 g/dL (11.2-15.7) 01/23/21 09:01 01/23/21 Hematocrit 42.7 % (36.0-46.0) 01/23/21 09:01 01/23/21 Platelet Count 367 10^3/uL (130-400) 01/23/21 09:01 01/23/21 Complete Metabolic Panel: No Data to Display Liver Function Panel: No Data to Display Coagulation Panel: No Data to Display Cardiac Panel: No Data to Display Arterial Blood Gas: No Data to Display Venous Blood Gas: No Data to Display Pancreas Panel: No Data to Display Thyroid Panel: No Data to Display Infectious Disease: Coronavirus (COVID-19)(PCR) Negative (Negative) 01/23/21 09:52 01/23/21 Coronavirus 2019 Source Nasal/Nares 01/23/21 09:52 01/23/21 Blood Cultures: No Data to Display Toxicology Panel: No Data to Display Panel: Serum HCG, Qualitative Negative 01/23/21 09:01 01/23/21 Anesthesia Assessment and Plan Anesthesia History Personal History: No History of Anesthesia Complications Family History: No Family History of Anesthesia Complications Exercise Tolerance Exercise Tolerance: Metabolic Equivalents>4 Pertinent Negatives Pertinent Negatives: No Symptoms of GERD, No Major Cardiovascular Symptoms or Complaints, No Major Pulmonary Symptoms or Complaints and No History of CVA/TIA Cardiac & Pulmonary Exam Cardiac Exam: Normal S1/S2 Heart Sounds Pulmonary Exam: Clear Bilateral Breath Sounds Implantable Cardiac Device Does patient have a Pacemaker or an ICD?: No Airway Exam Known Difficult Airway: No Mallampati Class: 1 Mouth Opening: Normal (> 3cm) Thyromental Distance: Greater than 3 cm Neck Range of Motion: Full ROM Neck Circumference: Normal Teeth Condition: Normal Dentition ASA Classification ASA Score: ASA 2 Emergency Case?: No NPO Status NPO Status: NPO Clears >2 hours, Solids >8 hours Status Status: Unable to Assess Anesthesia Plan Resuscitation Status: Full Code Anesthesia Technique: General Anesthesia Airway Planned: Endotracheal Tube Monitors Used: Standard Monitors Preoperative Comments:: Quit smoking 3 weeks. Rare marijuana
[2021-01-25] MEDS: Lactated Ringers 1,000 ML 125 ML IV ×2 (06:56→07:34)
[2021-01-25] MEDS: Celecoxib 200 MG CAP PO (07:02)
[2021-01-25] MEDS: Gabapentin 300 MG CAP 600 MG PO (07:02)
[2021-01-25] MEDS: Acetaminophen 500 MG TAB 1000 MG PO (07:02)
--- NOTE | 2021-01-25 08:27 | APP_PTH ---
PATIENT: Opal Drew LOC: [facility]INE U#:[id number] AGE/SX: 25/F ROOM: RE01/25/[address]: Janette Daigle : 1995 BED: DIS: 01/25/2021 SPEC #: [id number] RECD: 01/25/21 12:51 STATUS: JULIA REQ #: [id number] PABLO: 01/25/21 08:[address]: Janette Daigle DEPT: Surgical Specimen RECD BY: Sandra Anderson ENTERED: 01/25/21 12:51 SP TYPE: Appendix OTHR DR: Kaitlyn Mckeon Tissues: 1 - APPENDIX NOT INCIDENTAL Procedures: GROSS AND MICRO LEVEL 3 Comments: [id number]
--- NOTE | 2021-01-25 08:29 | W.PM.OP ---
Date of service: 01/25/21 Time of Service: 08:29 Operative Note Operative Note DATE OF PROCEDURE: 01/25/21 PRE-OP DIAGNOSIS: Chronic pelvic pain POST-OP DIAGNOSIS: same PROCEDURE: Laparoscopic appendectomy ASSISTING SURGEON: Janette Daigle BRIDGE ENGINEER: Gemma Paulino ANESTHESIA TYPE: General LMA/ETT Refer to Anesthesia Record ESTIMATED BLOOD LOSS: 3 PATHOLOGY: other (Appendix) COMPLICATIONS: None Patient was transported to: PACU Patient's condition: stable Indications: Patient is a 25-year-old female presents for a preop exam. She is scheduled for a laparoscopic right oophorectomy and right fallopian tube removal along with a appendectomy that will be performed by General Surgery Dept for the treatment of chronic right sided pelvic pain. At the time of previous [facility] visit on we discussed her longstanding sx of R sided pelvic pain and treatment options. She started on Gabapentin 100mg BID which she reports has decreased but not resolved the intensity of pain that she feels. I counseled her about the non-surgical and surgical treatment options for her sx. She accepted that removal of the ovary and fallopian tube and not performing a hysterectomy was acceptable to her. She has a preop appointment with General Surgery for a concomitant appendectomy. Findings: Normal appearing appendix Procedure Description: After informed consent was obtained the patient was taken to the operating room placed in the supine position, SCDs were applied as well as monitors. A timeout was done. The patient was then placed under general anesthesia and intubated without any difficulty. The patient was placed in stirups per Dr. Gomez. At this point the abdomen was prepped and draped in a sterile surgical fashion with chlorhexidine. A second timeout was done and the patient's name, date of , operation to be performed, DVT prophylaxis, antibiotic given, and fire risk was assessed. Exparel was mixed 50-50 with 0.25% Bupivocaine. The mixture was injected into the dermis at the umbilicus. A 10 mm incision was made with an 11 blade. The skin was grasped with penetrating towel clamps on either side of the incision and the varis needle was placed into the abdomen and the abdomen was insuflated. a 10 mm port was then under direct visualization into the abdomen. Local anesthetic was then injected in the RLQ and LLQ. A small 5 mm incision was made with an 11 blade in the LLQ and RLQ and 5 mm ports were placed under direct visualization into the abdomen. The patient's bed was then turned to the left and head down allowing me to sweep of the small bowel out of the right lower quadrant. The cecum was gently grasped and the appendix was identified. The appendix looked normal. The appendix was grasped at the neck and pulled up slightly allowing me to visualize the junction with the cecum. Using the laparoscopic LigaSure the mesoappendix was slowely transected. The appendix then broke off at the edge with the cecum. A looped vicral suture was placed around the stump and tightened. The appendix was removed through the 12 mm port site. No bleeding was noted. At this point Dr. Gomez and Dr. Paulino continued with surgery to remove the right fallopian tube and ovary.
--- NOTE | 2021-01-25 08:41 | OVAR_PTH ---
PATIENT: Opal Drew LOC: NADINE U#:[id number] AGE/SX: 25/F ROOM: RE01/25/[address]: Janette Daigle : 1995 BED: DIS: 01/25/2021 SPEC #: [id number] RECD: 01/25/21 12:56 STATUS: JULIA REYvette #: [id number] PABLO: 01/25/21 08:[address]: Janette Daigle DEPT: Surgical Specimen RECD BY: Sandra Anderson ENTERED: 01/25/21 12:57 SP TYPE: KILO RODRIGUEZ DR: Kaitlyn Mckeon Tissues: 1 - OVARY NOT TUMOR W OR W/O TUBES Procedures: GROSS AND MICRO LEVEL 4 Comments: [id number]
[2021-01-25] MEDS: Cellulose,Oxidized 4X8 1 PACKET MC (08:58)
[2021-01-25] MEDS: Bupivacaine LIPOSOME/PF 133 MG/10 ML VIAL IJ (09:05)
[2021-01-25] MEDS: Bupivacaine 0.25% Pres-Free 30 ML VIAL (09:06)
--- NOTE | 2021-01-25 09:16 | W.PM.DSUDISC ---
Discharge Plan Disposition Patient Disposition: HOME Condition: Fair Discharge Details Attending Provider: Janette Daigle Primary Care Provider: Kaitlyn Mckeon Home Meds and New Rx's Prescriptions: No Action gabapentin 100 mg capsule 100 mg PO BID Qty: 60 RF: 6 Discharge Instructions Additional Instructions: Continue gabapentin 100 mg twice daily. You may continue to take ibuprofen 600 mg every 6 hours as needed or Tylenol 325 mg every 6 hours as needed. You may remove your dressings over your incisions tomorrow. There may be black and blue where your incisions are. Try to limit your activity as much as possible in the next 48 hours. You may have bleeding like a period for 2 to 3 days. Stand Alone Forms: DSU Post Gynecology Surgery Activity:: Activity as Tolerated Remove Dressings/Wound Care:: 24 hours Shower/Bathe:: 24 hours Diet:: As Tolerated Discharge Orders Discharge Orders: Discharge Order (Routine); Ordered 01/25/21 Ordered By: Janette Daigle DS: Diagnosis Discharge Diagnosis (1) Pelvic pain: Status: Chronic (2) History of right salpingo-oophorectomy: Status: Acute (3) Hx of appendectomy: Status: Chronic
--- NOTE | 2021-01-25 09:23 | ROE_ITS ---
Date of service: 01/25/21 Time of Service: 09:23 Operative Note Operative Note DATE OF PROCEDURE: 01/25/21 PRE-OP DIAGNOSIS: Chronic right sided pelvic pain POST-OP DIAGNOSIS: same PROCEDURE: Laparoscopic appendectomy performed by Dr. Salguero. Dr. Salguero will dictate a separate operative note regarding her portion of the procedure. Laparoscopic right salpingo-oophorectomy performed by Dr. Armstrong SURGEON: Janette Daigle ASSISTING SURGEON: Gemma Paulino SECTION 8 PROPERTY MANAGER: Gemma Paulino ANESTHESIA TYPE: General LMA/ETT Refer to Anesthesia Record ESTIMATED BLOOD LOSS: 3 PATHOLOGY: other (Appendix) COMPLICATIONS: None Patient was transported to: PACU Patient's condition: stable Indications: 25-year-old female with a 6-year history residual right-sided pelvic pain after a tubo-ovarian abscess in 2014. Patient did not require an RSO at that time. She was treated successfully with antibiotics. She went on to have an uncomplicated but has had continuous right-sided pelvic pain with normal imaging studies. Previous diagnostic laparoscopy noted pelvic adhesions in the cul-de-sac and adhesions of the adnexa to the right pelvic sidewall that were successfully lysed. However there is no improvement in the patient's right-sided pelvic pain. Findings: Normal-appearing appendix, normal appearing right ovary and right fallopian tube, left adnexa was normal in appearance, cul-de-sac was free of adhesions, no evidence of endometriosis. Procedure Description: Patient was taken to the operating room where she received general endotracheal anesthesia. She was then placed in the dorsal lithotomy position in [facility] with SCDs in place. After being prepped and draped in the usual sterile fashion a surgical timeout was performed. Collins catheter was placed to gravity drainage. A bivalve speculum was placed in the vagina and the anterior lip of the cervix was grasped with a single-tooth tenaculum. A Zumi uterine manipulator was successfully inserted into the uterine cavity and the device left in place. Attention was then turned to the patient's abdomen. The umbilical fold was infiltrated with quarter percent Marcaine mixed with Exparel. A scalpel was then used to make a 12mm vertical skin incision in the umbilical fold. Two penetrating towel clips were used to tent up the skin and through the periumbilical incision and a Veres needle was introduced into the abdomen with carbon dioxide as the distention medium. Intra-abdominal placement was confirmed by a drop in the intra-abdominal pressure. Once a pneumoperitoneum was established a 12 mm Visiport was placed under direct visualization. Patient was then placed in Trendelenburg position. Two sites approximately 6 cm diagonally from the umbilical incision the skin were infiltrated with 1cc of 0.25% Marcaine mixed with Exparel, incised with a scalpel and two 5 mm lower ports were placed under direct visualization. Dr. Salguero then performed the appendectomy and the surgical specimen was sent to pathology. Using the same operative ports the right salpingoophorectomy was then performed in the following manner. After inspection of the location of the right ureter and determining that it was remote from the surgery site the right suspensory ligament of the ovary was grasped, cauterized and transected in a contiguous fashion. The mesosalpinx was then sequentially clamped, cauterized and transected to the level of the tubo- ovarian ligament which was clamped, cauterized and transected. Finally the proximal portion of the fallopian tube was clamped, cauterized and transected freeing the right adnexa from the uterus and pelvic side poole. Bleeding along the uterine serosa was controlled with application of monopolor electrocautery.The intra-abdominal pressure was lowered from 15mmHg to 5mmHg and pedicle sites inspected and noted to be hemostatic. The surface of the uterus where the fallopian tube and tuboovarian ligament had been transected was covered with Surgicel. The patient was taken out of Trendelenburg and under direct visualization the 5mm trochars were removed and the pneumoperitoneum reduced. The 12mmo port was removed and the rectus fascia of the umbilical port site was reapproximated with 0-Vicryl suture. The skin of all port sites were reapproximated with a subcuticular closure of 4-0 Monocryl suture and covered with sterile dresssings. The uterine manipulator and collins catheter were removed and the patient placed in the dorsal supine position. She was awakened from anesthesia, extubated and transported to recovery room in stable condition. All sponge, lap and needle counts were correct times two.
[2021-01-25] MEDS: Ketorolac 15 MG/ML VIAL IVP (12:11)
--- NOTE | 2021-01-25 14:37 | W.ANESPOSTOP ---
Postoperative Evaluation Date, Time and Location Date Performed: 01/25/21 Time Performed: 12:45 Patient Location: Day Surgery Unit Vital Signs Most Recent Imported Vital Signs: Most Recent Vital Signs Temp Pulse Resp BP Pulse Ox 36.2 C L 60 16 112/49 L 96 01/25/21 12:45 01/25/21 12:45 01/25/21 12:45 01/25/21 12:45 01/25/21 12:45 Pain Score Most Recent Pain Score: Most Recent Pain Score Pain Level 0 01/25/21 12:45 Assessment Mental Status: Arousable with meaningful communication Airway and Respiratory Function: Patent airway with normal (patient baseline) respiratory exam Cardiovascular Function: Hemodynamically Stable Hydration Status: Adequately Hydrated Nausea & Vomiting: No Nausea or Vomiting Pain: Pain is tolerable per patient Peripheral Nerve Block: Patient did not receive a nerve block
== END 2021-01-25 13:42 | disposition home or self-care (01) ==
PROVIDERS: Surgery; PCP Nurse Practitioner Family; Visit Provider Obstetrics & Gynecology Gynecology
PROC: (CPT 58661; principal; 2021-01-25 07:30)
PROC: 0DTJ4ZZ Resection of Appendix, Percutaneous Endoscopic Approach (ICD-10-PCS; CPT 44970; 2021-01-25 07:30)
DX: N83.11 Corpus luteum cyst of right ovary (principal); N73.6 Female pelvic peritoneal adhesions (postinfective); R10.2 Pelvic and perineal pain; G89.29 Other chronic pain; R10.31 Right lower quadrant pain; F17.210 Nicotine dependence, cigarettes, uncomplicated
CPT/HCPCS: 44970; 58661; 88305; 88304; J1100; J1885; J2250; J2405

== ENCOUNTER 2021-07-04 02:43 | Outpatient (CLI) | payer MEDICAID, SELFPAY ==
[2021-07-04 12:29] LABS: TSH (W/Ref FT4) 0.69 uIU/mL (0.36-3.74)
[2021-07-04 22:49] LABS: Prolactin 9.6 ng/mL (See Note)
== END 2021-07-04 02:44 | disposition home or self-care (01) ==
LOC: LBO 02:43
PROVIDERS: PCP Nurse Practitioner Family; Visit Provider Obstetrics & Gynecology Gynecology
DX: N92.6 Irregular menstruation, unspecified (principal)
CPT/HCPCS: 36415; 84146; 84443

== ENCOUNTER 2021-09-16 16:34 | Outpatient (REF) | payer MEDICAID, SELFPAY | END 2021-09-16 16:35 | disposition home or self-care (01) | LOC: LBN 16:34 | PROVIDERS: PCP Nurse Practitioner Family; Visit Provider Nurse Practitioner Family | DX: R30.0 Dysuria (principal) | CPT/HCPCS: 87086 ==

== ENCOUNTER 2021-10-10 18:39 | Outpatient (REF) | payer MEDICAID, SELFPAY ==
[2021-10-10 15:40] LABS: HCT 43.9 % (36.0-46.0); HGB 13.8 g/dL (11.2-15.7); MCH 27.1 pg (27.0-33.0); MCHC 31.4 % (32.0-36.0); MCV 86 fL (80-95); MPV 9.4 fL (8.0-11.0); Platelet Count 399 10^3/uL (130-400); RBC 5.09 10^6/uL (3.93-5.22); RDW 12.8 % (11.7-14.6); RDW-SD 40.6 fL; WBC 8.35 10^3/uL (4.4-10.8)
[2021-10-10 16:06] LABS: ALT 25 U/L (14-59); AST 20 U/L (15-37); Albumin 4.1 g/dL (3.4-5.0); Alkaline Phosphatase 76 U/L (46-116); Bilirubin, Direct 0.1 mg/dL (0.0-0.2); Bilirubin, Total 0.3 mg/dL (0.2-1.0); C-Reactive Protein 1.39 mg/dL (0.0-0.3); TSH (W/Ref FT4) 3.43 uIU/mL (0.36-3.74); Total Protein 8.3 g/dL (6.4-8.2)
[2021-10-10 22:32] LABS: Estradiol 45 pg/mL (See Note)
[2021-10-11 10:53] LABS: HIV-1/2 Ag & Ab Screen Negative (Negative)
== END 2021-10-10 18:40 | disposition home or self-care (01) ==
LOC: NCHCN 18:39
PROVIDERS: Visit Provider Nurse Practitioner Family
DX: R23.2 Flushing (principal); G43.109 Migraine with aura, not intractable, without status migrainosus; N92.6 Irregular menstruation, unspecified
CPT/HCPCS: 80076; 85027; 87389; 82670; 84443; 86140

== ENCOUNTER 2021-10-31 13:35 | Outpatient (REF) | payer MEDICAID, SELFPAY ==
--- NOTE | 2021-10-31 13:10 | PAPFT_PTH ---
PATIENT: Opal Drew LOC: [facility] U#:[id number] AGE/SX: 25/F ROOM: RE10/31/[address]: Janette Daigle : 1995 BED: DIS: 10/31/2021 SPEC #: [id number] RECD: 10/31/21 15:27 STATUS: JULIA REYvette #: [id number] PABLO: 10/31/21 13:[address]: Janette Daigle DEPT: [facility] Cytology RECD BY: Sandra Anderson Tissues: 1 - CX/ENDOCX FOR PAP SMEARS Procedures: PAP THIN PREP/UVM Screening Comments: [id number]
== END 2021-10-31 13:36 | disposition home or self-care (01) ==
LOC: LBN 13:35
PROVIDERS: Visit Provider Obstetrics & Gynecology Gynecology
DX: Z12.4 Encounter for screening for malignant neoplasm of cervix (principal)
CPT/HCPCS: 88142

== ENCOUNTER 2022-02-11 18:10 | Emergency (ER) | payer MEDICAID, SELFPAY ==
[2022-02-11 18:13] VITALS: BP 127/78; PULSE 87; RESP 16; TEMP 36.9; O2SAT 99
--- NOTE | 2022-02-11 18:30 | DI.RAD_ITS ---
Exam(s) XR FOOT RT COMPLETE EXAM: XR FOOT RT COMPLETE CLINICAL HISTORY: contusion 1-4 phalanx, predom 1st pain. TECHNIQUE: 2D digital imaging was performed. Three views. COMPARISON: CR XR CHEST 2V PA LATERAL from 08/31/2020 FINDINGS: BONES: No acute fracture is present. No bony destructive lesion is seen. JOINTS: No dislocation present. SOFT TISSUE: Normal. IMPRESSION: Unremarkable radiographs of the right foot. DATA REPOSITORY: RADIATION DOSE DELIVERED:
--- NOTE | 2022-02-11 18:31 | ED.GENADUL_ITS ---
Discharge Plan Disposition Patient Disposition: Home Condition: Stable Discharge Details Clinical Impression: Contusion, toes Primary Care Provider: Natasha Velazco V ED Provider: Sandra Lopes Home Meds and New Rx's Prescriptions: Continued multivitamin [Multiple Vitamins] Tablet 1 tab PO DAILY Discharge Instructions Instructions: Foot Contusion (ED) Additional Instructions: Please take ibuprofen over the counter. Take 600mg by mouth every 6 hours as needed for pain. Please use orthopedic shoe to protect your toes over the next 1 week. Please contact your primary care physician to arrange follow-up. Return to the ER immediately for any worsening or new concerning symptoms. Referrals: Natasha Velazco MD [Primary Care Provider] - Discharge Data Discharge Date/Time-TO BE ENTERED AT DEPARTURE: 02/11/22 19:21 Medical Decision Making <Martínez Hurtado MD - Last Filed: 02/13/22 02:31> 26-year-old female here with injury to right foot injury distal phlanx toes 1-4 with mild subungual hematoma of the great toe. X-ray of the foot was reviewed and interpreted by radiology: No fracture Suspect contusion of the foot. Postop orthopedic shoe provided for splinting. I recommended crutches and patient provided informed refusal. Usual customary discharge instructions were reviewed with the patient. <KAT Perdomo - Last Filed: 02/14/22 22:15> Medical Records Medical records reviewed: Yes I reviewed the patient's medical records. HPI <Martínez Hurtado MD - Last Filed: 02/13/22 02:31> General Mode of arrival: ambulatory . Date/Time Provider Initiated Documentation: 02/11/22 18:31 . Limitations to Documentation: no limitations . Information obtained by: patient . HPI Narrative: 26-year-old female presents with chief complaint of toe pain. Patient notes she dropped a 20 pound piece of metal on her right foot around 2 PM today at work. She has had pain in her toes since the accident. Pain is localized to toes 1-4 distally. She had some bleeding from the base of first toenail. No associated numbness or tingling. Related Data Home Medications Medication Instructions Recorded Confirmed multivitamin (Multiple Vitamins 1 tab PO DAILY 10/31/21 02/11/22 tablet) Allergies Allergy/AdvReac Type Severity Reaction Status Date / Time adhesive Allergy Severe dunham skin Unverified 02/11/22 18:18 after being on tegan Allergy Severe Anaphylaxis Verified 02/11/22 18:18 red dye Allergy Intermediate Other (See Unverified 02/11/22 18:18 Comment) <KAT Perdomo - Last Filed: 02/14/22 22:15> General Stated Complaint: Orthopedic ANJEL: 4 Review of Systems <Martínez Hurtado MD - Last Filed: 02/13/22 02:31> Musculoskeletal Musculoskeletal: Reports as per HPI Integumentary/Breasts Skin/Breast: Reports as per HPI <KAT Perdomo - Last Filed: 02/14/22 22:15> Narrative: Review of systems obtained x3 and negative aside from medication HPI PFSH <Martínez Hurtado MD - Last Filed: 02/13/22 02:31> All Active Problems Contusion, toes (Acute) Dysmenorrhea (Acute) Menses, irregular (Acute) Abrasion of cornea, left (Acute) Contraception management (Acute) Mirena IUD 08/2014. Removed 10/12/15. Pt didn't like menstrual irregularity. Started OCPs. 08/2016 Nexplanon inserted 09/09/17 Nexplanon out. Didnt like feeling hormonal. Condoms. 2019. Withdrawal. Recurrent erosion of cornea, left eye (Acute) Abrasion, corneal (Acute) Status post laparoscopy (Acute) 03/30/20. Lysis of extensive pelvic adhesions and right ovarian cystotomy Sciatica (Acute) Tobacco dependence (Acute) H/O hemorrhoidectomy (Chronic) Depression (Chronic) medication in the past, Has a counselor who she doesn't see often. Joey. Medical History Abdominal pain during in second trimester Atypical squamous cells of undetermined significance (ASC-US) on cervical Pap smear 2021. Nl Pap. (normal spontaneous vaginal delivery) Pelvic pain Since TOA. No resolution after ABX, no improvement after laparoscopic lysis of adhesions 03/2020. 01/2021. RSO pain resolved. Right tubo-ovarian abscess (05/19/14) Right tubo-ovarian abscess 05/2014. Neg STI testing at time of eval. Rx with ABX and resolved w/o surgery. Surgical History hemorrhoid banding (04/09/17) History of right salpingo-oophorectomy Hx of appendectomy Family History Mother Tachycardia Father Hypertension Depression Psychosis Mother Heart disease Social History Smoking/Tobacco Use Status: Former Tobacco Use Quit Date: 01/17/21 Tobacco: How many years used: 1 Quit status: considering quitting Smoking risk assessment performed?: Yes Alcohol Intake: current Alcohol Intake frequency: holidays/special occasions only Drug use: Occasionally Substance use type: marijuana Household members: significant other, children and other Details: Christine Stover (07/2019) Housing: other Number of Children: 1 current occupation: Unemployed. Sexually active: Yes What is your relationship status?: never Panel score (0-1 are the most socially isolated patients): 0 What type of physical activity do you participate in: none Seatbelt use: always Do you feel safe at home: Yes Do you feel safe in your relationship?: Yes History History 1 Para 1 Hx # Term Pregnancies 1 Multiple births 0 Hx # Pregnancies 0 Ectopic pregnancies 0 AB induced 0 Hx Number of Living Children 1 AB spontaneous 0 Past Pregnancies Del. Date GA/Weeks # Preg Succ Route Wgt Sex Labor Lgth Anesth esia Location [facility] 07/30/19 39 No vaginal 3600.389 g Female Hugo Edwards MD Delivery Date: 07/30/19 Last Updated by: Dianelys Ramirez. <KAT Perdomo - Last Filed: 02/14/22 22:15> Female Reproductive History control method: other Exam <Martínez Hurtado MD - Last Filed: 02/13/22 02:31> Skin Other: First toe subungual hematoma that is mild, small superficial skin abrasion just prox to nail base with no bleeding Extrem Right lower extremity: foot Details: tenderness (toes 1-4 distally), toes with normal ROM and motor-sensory exam Details: light-touch normal Other: Exam of the foot otherwise normal <KAT Perdomo - Last Filed: 02/14/22 22:15> Const General: cooperative and comfortable Extrem Other: Right great toe, second, third, and fourth digits distally with ecchymosis Neurovascularly intact, distal pulses intact <KAT Perdomo - Last Filed: 02/14/22 22:15> Vital Signs Vital signs: Vital Signs Temperature 36.9 C 02/11/22 18:13 Pulse 87 02/11/22 18:13 Respiratory Rate 16 02/11/22 18:13 Blood Pressure 127/78 02/11/22 18:13 Pulse Oximetry 99 02/11/22 18:13 Temperature 36.9 C 02/11/22 18:13 Temperature Source Temporal Artery Scan 02/11/22 18:13 Pulse 87 02/11/22 18:13 Respiratory Rate 16 02/11/22 18:13 Respiratory Effort Non-Labored 02/11/22 18:17 Blood Pressure 127/78 02/11/22 18:13 Blood Pressure Position Sitting 02/11/22 18:13 Pulse Oximetry 99 02/11/22 18:13 Oxygen Delivery Method Room Air 02/11/22 18:13 Oxygen Flow Rate 0 02/11/22 18:13 Pain Level 6 02/11/22 18:13 PAWSS <Martínez Hurtado MD - Last Filed: 02/13/22 02:31> Result: 0 <KAT Perdomo - Last Filed: 02/14/22 22:15> Have you Been Recently Intoxicated or Drunk Within the Last 30 days?: No Have you Ever Experienced Previous Episodes of Alcohol Withdrawal?: No Have you ever Experienced Withdrawal Seizures?: No Have you ever Experienced Delirium Tremens(DT)s?: No Have you ever undergone Alcohol Rehabilitation Treatment (i.e, inpt ot outpatient treatment programs)?: No Have you ever Experienced Blackouts?: No Have you ever Combined Alcohol with other Downers within the last 90 days?: No Have you ever Combined Alcohol with any other Substance of Abuse during the last 90 days?: No Positive Blood Alcohol level on Presentation? [PCS.BAL]: No Evidence of Increased Autonomic Activity (i.e. HR>120, tremor, sweating, agitation, nausea)?: No Result: 0
[2022-02-11] MEDS: Acetaminophen 500 MG TAB (18:32)
[2022-02-11 19:10] VITALS: BP 125/74; PULSE 86; RESP 16; O2SAT 100
--- NOTE | 2022-02-11 19:13 | DI.VRAD_ITS ---
PROCEDURE INFORMATION: Exam: XR Right Foot Exam date and time: 02/11/2022 6:39 PM Age: 26 years old Clinical indication: Foot; Right; Patient HX: Contusion 1-4 phalanx, predom 1st; Pain TECHNIQUE: Imaging protocol: Radiologic exam of the Right foot. Views: 3 or more views. COMPARISON: No relevant prior studies available. FINDINGS: Bones/joints: Normal. Soft tissues: Normal. IMPRESSION: 1. No acute findings. 2. No fracture or posttraumatic malalignment. 3. Intact soft tissues. Dictated and Authenticated by: Serjio Diaz MD. Ordering:LAURA Flores MD
== END 2022-02-11 19:21 | disposition home or self-care (01) ==
PROVIDERS: Emergency Provider Physician Assistant; PCP Family Medicine
DX: S90.111A Contusion of right great toe without damage to nail, initial encounter (principal); S90.121A Contusion of right lesser toe(s) without damage to nail, initial encounter; W20.8XXA Other cause of strike by thrown, projected or falling object, initial encounter; Y99.0 Civilian activity done for income or pay
CPT/HCPCS: 99283; 73630

== ENCOUNTER 2022-04-17 17:17 | Emergency (ER) | payer MEDICAID, SELFPAY ==
[2022-04-17 17:31] VITALS: BP 141/88; PULSE 91; RESP 18; TEMP 37; O2SAT 100
--- NOTE | 2022-04-17 17:45 | DI.CT_ITS ---
Exam(s) CT ABDOMEN PELVIS W EXAM: CT ABDOMEN PELVIS W CLINICAL HISTORY: Abdominal Pain, Nausea. TECHNIQUE: Imaging Protocol: Axial computed tomography images with coronal and sagittal reformatted images were created and reviewed CONTRAST MATERIAL: Intravenous: Omnipaque 350 Contrast volume:90 ml Oral: / no COMPARISON: CT ABD PELVIS WITH CONTRAST from 05/18/2014 FINDINGS: ABDOMEN: Lung Bases: Normal where visualized. Liver: Normal density. No measurable mass. Gallbladder and biliary tract: No radiodense calculus or dilation. Pancreas: Normal density, no abnormal calcifications or inflammatory process. Spleen: Normal. Kidneys: Normal size, contour and axis. No radiodense stones or obstructive uropathy. No suspicious m asses seen. Adrenal glands: No masses seen. Abdominal Aorta: Abdominal portion non-dilated. Soft tissues: Unremarkable. PELVIS: Bladder: No gross wall thickening. No calculi.No focal mass. Bowel: No obstruction. No bowel wall thickening. Appendix normal.Normal quantity of stool. Peritoneal cavity: No ascites, collection or mesenteric inflammatory response. Bones: Within normal limits for age. Reproductive organs: Within normal limits. Lymph nodes: Unremarkable. Impression: Unremarkable CT scan of the abdomen and pelvis. RADIATION DOSE DELIVERED: 759.21mGy.cm Total DLP DATA REPOSITORY: All CT scans at this facility are submitted to the National Radiology Data Registry (NRDR) Dose Index Registry (DIR) with the [employer] (ACR). RADIATION OPTIMIZATION: All CT scans at this facility use at least one of these dose optimization te chniques: automated exposure control; mA and/or kV adjustment per patient size (includes targeted exa ms where dose is matched to clinical indication); or iterative reconstruction.
--- NOTE | 2022-04-17 17:52 | ED.GENADUL_ITS ---
Discharge Plan Disposition Patient Disposition: Home Discharge Details Clinical Impression: Abdominal pain Primary Care Provider: None,None ED Provider: Devora Bucio Home Meds and New Rx's Prescriptions: No Action ibuprofen 200 mg Tablet 200 mg PO Q6H PRN Discharge Instructions Instructions: Abdominal Pain (ED) Additional Instructions: CT and lab work are all within normal limits. No evidence of urinary tract infection or issue with your gallbladder. Follow up with primary care provider in 3-5 days. Return to ED sooner if any worsening or concerns. Increase oral fluids. Please take Tylenol or Ibuprofen with food every 4-6 hours as needed for pain and swelling. Stand Alone Forms: Work Release Discharge Data Discharge Date/Time-TO BE ENTERED AT DEPARTURE: 04/17/22 20:11 Medical Decision Making 26-year-old female presents to the ER with a chief complaint of lower abdominal pain which began to worsen on Saturday. She reports that she has had this pain on and off for the last 8 years which she reports that they have been unable to explain the reasoning for abdominal pain. She denies any vaginal bleeding or discharge, denies any dysuria no diarrhea or vomiting. She reports some nausea she states that it began intermittently and now is constant she describes it as a sharp stabbing pain. Work-up ordered including CBC, CMP, lipase, urinalysis urine CT abdomen pelvis with IV contrast. Labs are largely unremarkable. No evidence of leukocytosis or UTI. CT is also within normal limits. We will give patient Toradol and discharged home. This text was generated using [employer] dictation system, please disregard any oddities of phrase or misspellings. Imaging Data Radiologic Study: Imaging: CT Scan Radiologist's impression: COMPARISON: US PELVIS TRANSVAGINAL 12/08/2020 12:53 PM FINDINGS: Liver: Fatty infiltration. No mass. Gallbladder and bile ducts: Normal. No calcified stones. No ductal dilation. Pancreas: Normal. No ductal dilation. Spleen: Normal. No splenomegaly. Adrenal glands: Normal. No mass. Kidneys and ureters: Normal. No hydronephrosis. Stomach and bowel: Unremarkable. No obstruction. No mucosal thickening. Appendix: Appendectomy by history Intraperitoneal space: Unremarkable. No free air. No significant fluid collection. Vasculature: Unremarkable. No abdominal aortic aneurysm. Lymph nodes: Unremarkable. No enlarged lymph nodes. ARETHA CALDERON Preliminary Radiology Report MOISTURE MACHINE TENDER (QA) DISCREPANCY? If there is a discrepancy between the preliminary and final interpretation, please notify [facility] via [email or web address]. If you do not have access to our QA portal, call our QA team at [phone] CONFIDENTIALITY STATEMENT This report is intended on ly for the use of the referring physician, and only in accordance with law, If you received this in error, call [phone] Page 2 of 2 Urinary bladder: Unremarkable as visualized. Reproductive: Unremarkable as visualized. Bones/joints: Unremarkable. No acute fracture. Soft tissues: Unremarkable. IMPRESSION: No acute findings. Lab Data Lab results reviewed: Yes I reviewed the patient's lab results. Labs: Laboratory Tests Range/Units 04/17/22 04/17/22 04/17/22 18:24 18:24 18:24 WBC (4.4-10.8) 10^3/uL 8.04 RBC (3.93-5.22) 10^6/uL 4.54 Hgb (11.2-15.7) g/dL 13.2 Hct (36.0-46.0) % 40.4 MCV (80-95) fL 89 MCH (27.0-33.0) pg 29.1 MCHC (32.0-36.0) % 32.7 RDW (11.7-14.6) % 13.4 Plt Count (130-400) 10^3/uL 339 MPV (8.0-11.0) fL 9.2 Immature Gran % 0.2 Neutrophils % 60.9 Lymphocytes % 33.2 Monocytes % 4.9 Eosinophils % 0.6 Basophils % 0.2 Nucleated RBC % (0.0-0.3) % 0.0 Absolute Neutrophils (1.2-6.7) 10^3/uL 4.89 Absolute Lymphocytes (1.2-3.4) 10^3/uL 2.67 Absolute Monocytes (0.1-0.8) 10^3/uL 0.39 Absolute Eosinophils (0.0-0.7) 10^3/uL 0.05 Absolute Basophils (0.0-0.2) 10^3/uL 0.02 Sodium (136-145) mmol/L 140 Potassium (3.5-5.1) mmol/L 3.9 Chloride (98-107) mmol/L 104 Carbon Dioxide (21.0-32.0) mmol/L 27.0 Anion Gap (3-11) mmol/L 9.0 BUN (7-18) mg/dL 15 Creatinine (0.55-1.02) mg/dL 0.7 Est GFR (CKD-EPI 2020) (mL/min/1.73m2) 123.78 Glucose (74-106) mg/dL 83 Calcium (8.5-10.1) mg/dL 9.2 Magnesium (1.8-2.4) mg/dL 1.8 Total Bilirubin (0.2-1.0) mg/dL 0.8 AST (15-37) U/L 17 ALT (14-59) U/L 26 Alkaline Phosphatase (46-116) U/L 67 Total Protein (6.4-8.2) g/dL 7.9 Albumin (3.4-5.0) g/dL 4.2 Lipase (16-77) U/L 22 Urine Color (Yellow) Yellow Urine Clarity (Clear) Clear Urine pH (5-8) 6.0 Ur Specific Henderson (1.005-1.025) 1.020 Urine Protein (Negative) mg/dL Negative Urine Ketones (Negative) mg/dL Negative Urine Blood (Negative) Negative Urine Nitrite (Negative) Negative Urine Bilirubin (Negative) Negative Urine Urobilinogen (Up to 0.2) mg/dL 0.2 Ur Leukocyte Esterase (Negative) Negative Urine Glucose (Negative) mg/dL Negative HPI General Mode of arrival: ambulatory . Date/Time Provider Initiated Documentation: 04/17/22 17:19 . Limitations to Documentation: no limitations . Information obtained by: patient, RN notes reviewed and old records reviewed . HPI Narrative: 26-year-old female presents to the ER with a chief complaint of lower abdominal pain which began to worsen on Saturday. She reports that she has had this pain on and off for the last 8 years which she reports that they have been unable to explain the reasoning for abdominal pain. She denies any vaginal bleeding or discharge, denies any dysuria no diarrhea or vomiting. She reports some nausea she states that it began intermittently and now is constant she describes it as a sharp stabbing pain. She does have a past surgical history of right oophorectomy, appendectomy and hemorrhoid banding. She does have a history of a right tubo-ovarian abscess, pelvic pain. She is not currently on any control. She last took some ibuprofen at 8 AM this morning. Related Data Home Medications Medication Instructions Recorded Confirmed ibuprofen 200 mg tablet 200 mg PO Q6H PRN 04/17/22 04/17/22 Allergies Allergy/AdvReac Type Severity Reaction Status Date / Time adhesive Allergy Severe dunham skin Unverified 04/17/22 17:36 after being on tegan Allergy Severe Anaphylaxis Verified 04/17/22 17:36 red dye Allergy Intermediate Other (See Unverified 04/17/22 17:36 Comment) General Stated Complaint: Abd Prob ANJEL: 3 Review of Systems All systems reviewed & are unremarkable except as noted in HPI and below Constitutional Constitutional: Reports chills and Denies fever(s) Gastrointestinal Gastrointestinal: Reports abdominal pain, Denies diarrhea, Reports nausea and Denies vomiting Genitourinary Genitourinary: Denies dysuria and Denies vaginal discharge PFSH All Active Problems (Updated 04/17/22 @ 19:48 by Devora Bucio NP) Abdominal pain (Acute) Dysmenorrhea (Acute) Menses, irregular (Acute) Abrasion of cornea, left (Acute) Contraception management (Acute) Mirena IUD 08/2014. Removed 10/12/15. Pt didn't like menstrual irregularity. Started OCPs. 08/2016 Nexplanon inserted 09/09/17 Nexplanon out. Didnt like feeling hormonal. Condoms. 2019. Withdrawal. Recurrent erosion of cornea, left eye (Acute) Abrasion, corneal (Acute) Status post laparoscopy (Acute) 03/30/20. Lysis of extensive pelvic adhesions and right ovarian cystotomy Sciatica (Acute) Tobacco dependence (Acute) H/O hemorrhoidectomy (Chronic) Depression (Chronic) medication in the past, Has a counselor who she doesn't see often. Joey. Medical History Abdominal pain during in second trimester Atypical squamous cells of undetermined significance (ASC-US) on cervical Pap smear 2021. Nl Pap. (normal spontaneous vaginal delivery) Pelvic pain Since TOA. No resolution after ABX, no improvement after laparoscopic lysis of adhesions 03/2020. 01/2021. RSO pain resolved. Right tubo-ovarian abscess (05/19/14) Right tubo-ovarian abscess 05/2014. Neg STI testing at time of eval. Rx with ABX and resolved w/o surgery. Surgical History hemorrhoid banding (04/09/17) History of right salpingo-oophorectomy Hx of appendectomy Family History Mother Tachycardia Father Hypertension Depression Psychosis Mother Heart disease Social History Smoking/Tobacco Use Status: Former Tobacco Use Quit Date: 01/17/21 Tobacco: How many years used: 1 Quit status: considering quitting Smoking risk assessment performed?: Yes Alcohol Intake: current Alcohol Intake frequency: 3 or more drinks per day Alcohol type: wine Drug use: Occasionally Substance use type: marijuana Household members: significant other, children and other Details: Christine Stover (07/2019) Housing: other Number of Children: 1 current occupation: Unemployed. Sexually active: Yes What is your relationship status?: never Panel score (0-1 are the most socially isolated patients): 0 What type of physical activity do you participate in: none Seatbelt use: always Do you feel safe at home: Yes Do you feel safe in your relationship?: Yes Female Reproductive History Menstrual control method: other History History 1 Para 1 Hx # Term Pregnancies 1 Multiple births 0 Hx # Pregnancies 0 Ectopic pregnancies 0 AB induced 0 Hx Number of Living Children 1 AB spontaneous 0 Past Pregnancies Del. Date GA/Weeks # Preg Succ Route Wgt Sex Labor Lgth Anesth esia Location Prov Complic 07/30/19 39 No vaginal 3600.389 g Female Hugo Edwards MD Delivery Date: 07/30/19 Last Updated by: Dianelys Ramirez. Exam Narrative Exam Narrative: Constitutional: Alert and oriented x3. Appears stated age. Normal body habitus. Head: Normocephalic, no trauma. Eyes: Pupils PERRL, Red reflex noted, EOM's intact. Eyelids symmetrical without lesions, discharge, or swelling. ENT: Bilateral TM's WNL, External ear normal to inspection, no mastoid TTP, swelling, or erythema, Nasal turbinates WNL, no nasal discharge. Normal dentition, Posterior pharynx WNL, no exudate. Chest: RRR, Normal S1, S2, distal pulses intact. Resp: Lungs clear to auscultation bilaterally, no wheezes, rales, or rhonchi. Abdomen: Soft, non-distended, Normoactive bowel sounds all 4 quads. Tenderness suprapubic mid quadrant. Musculoskeletal: Normal gait, 5/5 strength to all four extremities. Skin: No suspicious rashes or lesions. Capillary refill less than 2 sec. Neurologic: Cranial nerves II-XII intact. Alert and oriented x 3. Motor: No deficits noted. Sensory: Intact bilaterally all 4 extremities. Reflexes: DTR's intact bilaterally.. Hematologic/Lymphatic: No ecchymosis, no lymphadenopathy. Course Vital Signs Vital signs: Vital Signs Temperature 37.0 C 04/17/22 17:31 Pulse 91 H 04/17/22 17:31 Respiratory Rate 18 04/17/22 17:31 Blood Pressure 141/88 H 04/17/22 17:31 Pulse Oximetry 100 04/17/22 17:31 Temperature 37.0 C 04/17/22 17:31 Temperature Source Tympanic 04/17/22 17:31 Pulse 91 H 04/17/22 17:31 Respiratory Rate 18 04/17/22 17:31 Respiratory Effort Normal, Non-Labored 04/17/22 17:34 Blood Pressure 141/88 H 04/17/22 17:31 Blood Pressure Position Sitting 04/17/22 17:31 Pulse Oximetry 100 04/17/22 17:31 Oxygen Delivery Method Room Air 04/17/22 17:31 Oxygen Flow Rate 0 04/17/22 17:31 Pain Level 8 04/17/22 17:31 PAWSS Have you Been Recently Intoxicated or Drunk Within the Last 30 days?: Yes Have you Ever Experienced Previous Episodes of Alcohol Withdrawal?: No Have you ever Experienced Withdrawal Seizures?: No Have you ever Experienced Delirium Tremens(DT)s?: No Have you ever undergone Alcohol Rehabilitation Treatment (i.e, inpt ot outpatient treatment programs)?: No Have you ever Experienced Blackouts?: Yes Have you ever Combined Alcohol with other Downers within the last 90 days?: No Have you ever Combined Alcohol with any other Substance of Abuse during the last 90 days?: Yes Positive Blood Alcohol level on Presentation? [PCS.BAL]: No Evidence of Increased Autonomic Activity (i.e. HR>120, tremor, sweating, agitation, nausea)?: No Result: 4
[2022-04-17 18:34] LABS: Abs Immature Grans 0.02 10^3/uL (0.0-0.06); Absolute Basophil Count 0.02 10^3/uL (0.0-0.2); Absolute Eosinophil Count 0.05 10^3/uL (0.0-0.7); Absolute Lymphocyte Count 2.67 10^3/uL (1.2-3.4); Absolute Monocyte Count 0.39 10^3/uL (0.1-0.8); Absolute Neutrophil Count 4.89 10^3/uL (1.2-6.7); Basophils % 0.2; Eosinophils % 0.6; HCT 40.4 % (36.0-46.0); HGB 13.2 g/dL (11.2-15.7); Immature Grans % 0.2; Lymphocytes % 33.2; MCH 29.1 pg (27.0-33.0); MCHC 32.7 % (32.0-36.0); MCV 89 fL (80-95); MPV 9.2 fL (8.0-11.0); Monocytes % 4.9; Neutrophils % 60.9; Platelet Count 339 10^3/uL (130-400); RBC 4.54 10^6/uL (3.93-5.22); RDW 13.4 % (11.7-14.6); RDW-SD 43.5 fL; WBC 8.04 10^3/uL (4.4-10.8)
[2022-04-17 18:36] LABS: Bilirubin Negative (Negative); Blood Negative (Negative); Clarity Clear (Clear); Glucose Negative (Negative); Ketones Negative (Negative); Leukocyte Esterase Negative (Negative); Nitrite Negative (Negative); Urobilinogen 0.2 mg/dL (Up to 0.2)
[2022-04-17 18:58] LABS: ALT 26 U/L (14-59); AST 17 U/L (15-37); Albumin 4.2 g/dL (3.4-5.0); Alkaline Phosphatase 67 U/L (46-116); BUN 15 mg/dL (7-18); Bilirubin, Total 0.8 mg/dL (0.2-1.0); CREATININE 0.7 mg/dL (0.55-1.02); Calcium 9.2 mg/dL (8.5-10.1); Chloride 104 mmol/L (98-107); Estimated GFR 123.78 (mL/min/1.73m2); Glucose 83 mg/dL (74-106); Lipase 22 U/L (16-77); Magnesium 1.8 mg/dL (1.8-2.4); Potassium 3.9 mmol/L (3.5-5.1); Sodium 140 mmol/L (136-145); Total Protein 7.9 g/dL (6.4-8.2)
[2022-04-17] MEDS: Omnipaque 350 MG/ML 100 ML BTL IJ (19:08)
[2022-04-17] MEDS: Normal Saline Flush 10 ML SYR IVP (19:09)
[2022-04-17] MEDS: Normal Saline - Diluent 50 ML VIAL IV (19:09)
--- NOTE | 2022-04-17 19:44 | DI.VRAD_ITS ---
PROCEDURE INFORMATION: Exam: CT Abdomen And Pelvis With Contrast Exam date and time: 04/17/2022 7:14 PM Age: 26 years old Clinical indication: Abdominal pain; Localized; Prior surgery; Surgery date: 6+ months; Surgery type: Appendectomy, hemorrhoid banding, salpingo oophorectomy; Patient HX: Chronic lower abd pain increasing over last few days, nausea TECHNIQUE: Imaging protocol: Computed tomography of the abdomen and pelvis with contrast. Radiation optimization: All CT scans at this facility use at least one of these dose optimization techniques: automated exposure control; mA and/or kV adjustment per patient size (includes targeted exams where dose is matched to clinical indication); or iterative reconstruction. Contrast material: OMNIPAQUE 350; Contrast volume: 90 ml; Contrast route: INTRAVENOUS (IV); COMPARISON: US PELVIS TRANSVAGINAL 12/08/2020 12:53 PM FINDINGS: Liver: Fatty infiltration. No mass. Gallbladder and bile ducts: Normal. No calcified stones. No ductal dilation. Pancreas: Normal. No ductal dilation. Spleen: Normal. No splenomegaly. Adrenal glands: Normal. No mass. Kidneys and ureters: Normal. No hydronephrosis. Stomach and bowel: Unremarkable. No obstruction. No mucosal thickening. Appendix: Appendectomy by history Intraperitoneal space: Unremarkable. No free air. No significant fluid collection. Vasculature: Unremarkable. No abdominal aortic aneurysm. Lymph nodes: Unremarkable. No enlarged lymph nodes. Urinary bladder: Unremarkable as visualized. Reproductive: Unremarkable as visualized. Bones/joints: Unremarkable. No acute fracture. Soft tissues: Unremarkable. IMPRESSION: No acute findings. Dictated and Authenticated by: Joseluis Muñoz MD. Ordering:RAFIQ Lozoya MD
[2022-04-17] MEDS: Ketorolac 15 MG/ML VIAL IVP (19:52)
[2022-04-17 19:57] VITALS: BP 131/85; PULSE 69; RESP 16; O2SAT 98
== END 2022-04-17 20:11 | disposition home or self-care (01) ==
PROVIDERS: Emergency Provider Registered Nurse Emergency
DX: R10.30 Lower abdominal pain, unspecified (principal)
CPT/HCPCS: 36415; 80053; 81025; 83690; 96374; 99285; 74177; 81003; 83735; 85025; 99284; J1885; J3490

== ENCOUNTER 2022-06-25 18:52 | Outpatient (REF) | payer MEDICAID, SELFPAY ==
[2022-06-26 19:45] LABS: Estradiol <12 pg/mL (See Note)
[2022-06-26 19:59] LABS: FSH 87.3 mIU/mL (See Note)
== END 2022-06-25 18:53 | disposition home or self-care (01) ==
LOC: NCHCN 18:52
PROVIDERS: PCP Family Medicine; Visit Provider Family Medicine
DX: R10.2 Pelvic and perineal pain (principal)
CPT/HCPCS: 82670; 83001

== ENCOUNTER 2023-03-02 22:54 | Emergency (ER) | payer SELFPAY ==
[2023-03-02 22:58] VITALS: BP 139/87; PULSE 88; RESP 16; TEMP 36.4; O2SAT 100
--- NOTE | 2023-03-02 23:00 | DI.CT_ITS ---
Exam(s) CT ABDOMEN PELVIS W EXAM: CT ABDOMEN PELVIS W CLINICAL HISTORY: rlq abdominal pain (hx Roophrectomy/appendect). TECHNIQUE: Imaging Protocol: Axial computed tomography images with coronal and sagittal reformatted images were created and reviewed CONTRAST MATERIAL: Intravenous: Omnipaque 350 Contrast volume:100 ml Oral: no COMPARISON: CT CT ABDOMEN PELVIS W from 04/17/2022 FINDINGS: ABDOMEN and PELVIS: Lung Bases: No acute findings. Liver: Normal density. No measurable mass. Gallbladder and biliary tract: No radiodense calculus or dilation. Pancreas: Normal density. No abnormal calcifications or inflammatory process. No evidence of mass. Spleen: Normal. Kidneys: Normal size, contour and axis. No radiodense stones. No obstructive uropathy. No suspicious masses seen. Adrenal glands: No masses seen. Vasculature: Abdominal aorta non-dilated. Soft tissues: Unremarkable. Bladder: No gross wall thickening. No calculi.No focal mass. Bowel: No obstruction. No bowel wall thickening. Status post appendectomy. Normal quantity of stoo l. Peritoneal cavity: No ascites. No focal collection or mesenteric inflammatory response. Bones: Unremarkable for age. Reproductive organs: Within normal limits. Status post right oophorectomy. Lymph nodes: Unremarkable. IMPRESSION:: No acute abnormality in the abdomen or pelvis. RADIATION DOSE DELIVERED: Total DLP DATA REPOSITORY: All CT scans at this facility are submitted to the National Radiology Data Registry (NRDR) Dose Index Registry (DIR) with the [employer] (ACR). RADIATION OPTIMIZATION: All CT scans at this facility use at least one of these dose optimization te chniques: automated exposure control; mA and/or kV adjustment per patient size (includes targeted exa ms where dose is matched to clinical indication); or iterative reconstruction.
[2023-03-02 23:08] VITALS: BP 139/87; PULSE 88; RESP 16; TEMP 36.4; O2SAT 100
--- NOTE | 2023-03-02 23:15 | W.ED.GENAD ---
HPI General Date/Time Provider Initiated Documentation: 03/02/23 23:00. 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 Patient states that starting yesterday she developed right lower quadrant pain that was gradual in nature. She did take some NSAIDs earlier this afternoon which did not really help much. Pain is achy in nature. Is localized in the right lower quadrant/pelvic region. She denies any vaginal bleeding, and has not had any for the last 2 years. She is on current hormonal therapy of progesterone and estradiol. She does admit to some minimal chronic unchanged vaginal discharge. She does have a sexual partner, they do not have a history of STDs. She denies any other complaints at this time. She was initially seen at [facility] and there CAT scan is currently down, so I was then contacted for transfer. I was contacted by nurse/nurse practitioner, and accepted the patient for transfer. Related Data Home Medications Medication Instructions Recorded Confirmed benzonatate 100 mg capsule 100 mg PO TID PRN cough #14 caps 12/01/22 12/01/22 Previous Rx's Medication Instructions Recorded benzonatate 100 mg capsule 100 mg PO TID PRN cough #14 caps 12/01/22 Allergies Allergy/AdvReac Type Severity Reaction Status Date / Time adhesive Allergy Severe dunham skin Unverified 12/01/22 14:02 after being on tegan Allergy Severe Anaphylaxis Verified 12/01/22 14:02 red dye Allergy Intermediate Other (See Unverified 12/01/22 14:02 Comment) General Stated Complaint: Abd Prob ANJEL: 3 Review of Systems All systems reviewed & are unremarkable except as noted in HPI and below Exam Narrative Exam Narrative: 1.Const: Well-nourished, Well-developed, appearing stated age 2.Eyes: PERRL, no conjunctival injection, and symmetrical lids. 3.ENT: Atraumatic external nose and ears. Moist MM. Neck: Symmetric, trachea midline, No thyromegaly. 4.CVS: +S1/S2, No murmurs or gallops. Peripheral pulses 2+ and equal in all extremities. Brisk capillary refill in all extremities. 5.RESP: Unlabored respiratory effort. Clear to auscultation bilaterally. No wheezes rales or rhonchi 6.GI: Soft, nondistended, mild tenderness in the right lower pelvic region, no right lower abdominal tenderness otherwise. No left-sided tenderness. Negative Rovsing sign. No flank or CVA tenderness. 7.MSK: Normocephalic/Atraumatic, Extremities w/o deformity or ttp No cyanosis or clubbing, Normal movement of all extremities 8.Skin: Warm, Dry. No rashes or lesions. 9.Neuro: manager grocery II-XII grossly intact. Sensation grossly intact, no focal neurologic deficits. 10.Psych: (AAO) x3. Appropriate mood and affect Course Vital Signs Vital signs: Vital Signs Temperature 36.4 C L 03/02/23 22:58 Pulse 88 03/02/23 22:58 Respiratory Rate 16 03/02/23 22:58 Blood Pressure 139/87 03/02/23 22:58 Pulse Oximetry 100 03/02/23 22:58 Temperature 36.4 C L 03/02/23 23:08 Temperature Source Skin 03/02/23 23:08 Pulse 88 03/02/23 23:08 Respiratory Rate 16 03/02/23 23:08 Respiratory Effort Normal, Non-Labored 03/02/23 23:02 Blood Pressure 139/87 03/02/23 23:08 Blood Pressure Position Sitting 03/02/23 23:08 Pulse Oximetry 100 03/02/23 23:08 Oxygen Delivery Method Room Air 03/02/23 22:58 Oxygen Flow Rate 0 03/02/23 22:58 Pain Level 9 03/02/23 23:08 Medical Decision Making 27-year-old female with a past medical history of a right-sided tubo-ovarian abscess in 2014, subsequent clot in the past which led to right-sided salpingo-oophorectomy, 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 Patient states that starting yesterday she developed right lower quadrant pain that was gradual in nature. She did take some NSAIDs earlier this afternoon which did not really help much. Pain is achy in nature. Is localized in the right lower quadrant/pelvic region. She denies any vaginal bleeding, and has not had any for the last 2 years. She is on current hormonal therapy of progesterone and estradiol. She does admit to some minimal chronic unchanged vaginal discharge. She does have a sexual partner, they do not have a history of STDs. She denies any other complaints at this time. She was initially seen at [facility] and there CAT scan is currently down, so I was then contacted for transfer. I was contacted by nurse/nurse practitioner, and accepted the patient for transfer. Exam demonstrates right lower pelvic tenderness. No guarding or rebound otherwise. No flank or CVA tenderness. No left-sided tenderness. No ultrasound is currently available. We did discuss with the patient that her CT with contrast is a less ideal option than ultrasound for evaluation of potential ovarian vessel clot. Patient understands this. Differential also includes ovarian cyst, uterine mass, or other abnormality. Will give IV NSAIDs, get a CT scan with contrast, monitor closely and reassess. We will gently rehydrate and check urine as well. 3:18 AM Laboratory workup was reviewed from [facility], no abnormalities for CBC or comprehensive metabolic panel. Urinalysis negative for infection. Patient is feeling slightly better after NSAIDs, but did not have a resolution of her pain. CT scan result shows a small amount of trace fluid in the cul-de-sac diagnosis, nonspecific, no other abnormality was noted otherwise. No other evidence of significant abnormality at this time. I had a long discussion with the patient regarding limitations of the CAT scan, and need for potential ultrasonography for further assessment. I did offer transfer to [facility], but patient has refused. We will place referral for ultrasound Saturday morning. In the meantime I did offer anticoagulation in case there is a clot. She does have a standing prescription for this from [facility] already but has chosen not to take it. She again does not want any anticoagulation in the meantime. I discussed risk and benefits of this and she understands. In addition to this, I did recommend that a vaginal exam is performed for further testing. I discussed potential infectious etiologies, or other abnormalities that could be cervical in nature that could cause her pain. However patient has refused vaginal exam. I discussed with her the risks of this and she understands, including the greatest being lifelong disability or From his critical diagnosis. Patient states that I have been dealing with this pain for years, and it has not changed. I do not think there is anything new going on there and a vaginal exam would not change that. Patient otherwise appears stable. No evidence of an acute life-threatening etiology going on at this time on CAT scan, normal blood work, stable vital signs do feel that the patient is stable for discharge with close follow-up with OB and for ultrasound on Saturday. I did offer 2 to 3 tablets of opiate based pills for pain control at home if the patient requested, but she has refused this at this time as well. Patient will be discharged home. I also did have a separate long discussion with the patient regarding the challenges with chronic pain and the disease, and the emotional burden that it can have on this. Patient reciprocates these feelings, however I also asked if she would like me to reach out to some of our counselors on her behalf to help set up connection points she has requested to hold off on any additional connections or discussions with advocates. I have extensively reviewed the treatment plan and discharge instructions with the patient. I have addressed all patient concerns at this time. The patient was made aware of what symptoms to monitor for that would warrant a return to the emergency department. Discussed the plan with the patient, they demonstrate verbal understanding and agreement with our assessment and plan at this time. The documentation in this chart was dictated using Wortal dictation software. Please excuse any dictation errors. FINDINGS: Liver: Normal appearing liver. Gallbladder and bile ducts: Gallbladder partially collapsed. No calcified gallstones seen. No biliary dilatation. Pancreas: Normal appearing pancreas. Spleen: Normal appearing spleen. Adrenal glands: Normal appearing adrenal glands. Kidneys and ureters: Normal appearing kidneys. No hydronephrosis. Stomach and bowel: No oral contrast. Stomach partially decompressed. Normal-appearing colon. No evidence of diverticulitis or colitis. Appendix: Appendix not identified. Prior appendectomy by report. Intraperitoneal space: Trace fluid in the deep pelvis. No free air. Vasculature: Normal caliber abdominal aorta. Lymph nodes: No pathologically enlarged mesenteric, retroperitoneal, or pelvic sidewall lymph nodes. Urinary bladder: Normal appearing urinary bladder. Reproductive: Normal-sized uterus. Prior right salpingo-oophorectomy by report. Left ovary partially obscured but normal in size. Bones/joints: No acute fracture seen among the bones of the abdomen or pelvis. Soft tissues: No significant ventral or inguinal hernia. IMPRESSION: 1. Trace fluid in the cul-de-sac of Martín, nonspecific. Left ovary partially obscured but normal in size. 2. No acute bowel pathology demonstrated. Thank you for allowing us to participate in the care of your patient. Dictated and Authenticated by: Jose Matias MD 03/03/2023 12:44 AM Eastern Time ([place] & [place]) Quality:SDOH Health Related Social Needs: No Data to Display PFSH All Active Problems (Updated 03/03/23 @ 01:56 by Lauri Erwin DO) Pelvic pain (Acute) Dysmenorrhea (Acute) Menses, irregular (Acute) Abrasion of cornea, left (Acute) Contraception management (Acute) Mirena IUD 08/2014. Removed 10/12/15. Pt didn't like menstrual irregularity. Started OCPs. 08/2016 Nexplanon inserted 09/09/17 Nexplanon out. Didnt like feeling hormonal. Condoms. 2019. Withdrawal. Recurrent erosion of cornea, left eye (Acute) Abrasion, corneal (Acute) Status post laparoscopy (Acute) 03/30/20. Lysis of extensive pelvic adhesions and right ovarian cystotomy Sciatica (Acute) Tobacco dependence (Acute) H/O hemorrhoidectomy (Chronic) Depression (Chronic) medication in the past, Has a counselor who she doesn't see often. Joey. Medical History Atypical squamous cells of undetermined significance (ASC-US) on cervical Pap smear 2021. Nl Pap. Pelvic pain Since TOA. No resolution after ABX, no improvement after laparoscopic lysis of adhesions 03/2020. 01/2021. RSO pain resolved. (normal spontaneous vaginal delivery) Abdominal pain during in second trimester Right tubo-ovarian abscess 05/2014. Neg STI testing at time of eval. Rx with ABX and resolved w/o surgery. Right tubo-ovarian abscess (05/19/14) Surgical History Hx of appendectomy History of right salpingo-oophorectomy hemorrhoid banding (02/27/18) Family History Mother Tachycardia Father Hypertension Depression Psychosis Mother Heart disease Social History Smoking/Tobacco Use Status: Current every day Tobacco Type: e-cigarettes Tobacco: How many years used: 1 Quit status: considering quitting Smoking risk assessment performed?: Yes Alcohol Intake: current Alcohol Intake frequency: 3 or more drinks per day Alcohol type: wine Drug use: Daily Substance use type: marijuana Household members: significant other, children and other Details: Ruelon Bell. Stover (07/2019) Housing: other Number of Children: 1 current occupation: Unemployed. Sexually active: Yes What is your relationship status?: never Panel score (0-1 are the most socially isolated patients): 0 What type of physical activity do you participate in: none Seatbelt use: always Do you feel safe at home: Yes Do you feel safe in your relationship?: Yes Female Reproductive History Menstrual control method: other History History 1 Para 1 Hx # Term Pregnancies 1 Multiple births 0 Hx # Pregnancies 0 Ectopic pregnancies 0 AB induced 0 Hx Number of Living Children 1 AB spontaneous 0 Past Pregnancies Del. Date GA/Weeks # Preg Succ Route Wgt Sex Labor Lgth Anesthesia Location [facility] 07/30/19 39 No vaginal 3600.389 g Female MD Ana Delivery Date: 07/30/19 Last Updated by: Dianelys Ramirez. Discharge Plan Disposition Patient Disposition: Home Discharge Details Clinical Impression: Pelvic pain Primary Care Provider: Kaitlyn Mckeon ED Provider: Lauri Erwin Home Meds and New Rx's Prescriptions: No Action benzonatate 100 mg capsule 100 mg PO TID PRN (Reason: cough) Qty: 14 0RF Discharge Instructions Instructions: Pelvic Pain (ED) Additional Instructions: At this time the CAT scan shows a small amount of free fluid in your pelvis, but no other significant abnormality. As we discussed together there multiple other potential etiologies that could be causing the pain, but at this time we do not see any evidence of life-threatening ones. We have placed an order for an ultrasound for Saturday. They will contact you with the appointment time. If you have not heard from them by 9 AM, please contact them at the phone number provided. Please continue to take Tylenol and Motrin for the pain at home. Please follow-up closely with your obstetrics clinical nursing professor. If you notice any worsening of your symptoms, or any new symptoms such as vomiting, diarrhea, fever, chills, shortness of breath, chest pain, numbness, weakness, or fainting , please return immediately to the emergency department for reevaluation. Please follow up with your primary care provider as soon as possible for reassessment and reevaluation. As always, it was a pleasure participating in your medical care today. Stand Alone Forms: Work Release Referrals: Kaitlyn Mckeon [Primary Care Provider] -
[2023-03-02] MEDS: Ketorolac 15 MG/ML VIAL IVP (23:55)
[2023-03-02] MEDS: Normal Saline 1,000 ML 1000 ML IV (23:55)
[2023-03-02] MEDS: ACETAMINOPHEN 1,000 MG/100 ML BTL 400 MG IVPB (23:56)
[2023-03-03] MEDS: Normal Saline - Diluent 50 ML VIAL IJ (00:16)
[2023-03-03] MEDS: Omnipaque 350 MG/ML 100 ML BTL IJ (00:16)
--- NOTE | 2023-03-03 00:45 | DI.VRAD_ITS ---
PROCEDURE INFORMATION: Exam: CT Abdomen And Pelvis With Contrast Exam date and time: 03/03/2023 12:25 AM Age: 27 years old Clinical indication: Abdominal pain; Localized; Right lower quadrant (rlq); Prior surgery; Surgery date: 6+ months; Surgery type: HX of appendectomy. History of right salpingo-oophorectomy; Patient HX: Rlq abd pain TECHNIQUE: Imaging protocol: Computed tomography of the abdomen and pelvis with contrast. Contrast material: OMNIPAQUE 350; Contrast volume: 100 ml; Contrast route: INTRAVENOUS (IV); COMPARISON: CT ABDOMEN PELVIS W 04/17/2022 7:14 PM FINDINGS: Liver: Normal appearing liver. Gallbladder and bile ducts: Gallbladder partially collapsed. No calcified gallstones seen. No biliary dilatation. Pancreas: Normal appearing pancreas. Spleen: Normal appearing spleen. Adrenal glands: Normal appearing adrenal glands. Kidneys and ureters: Normal appearing kidneys. No hydronephrosis. Stomach and bowel: No oral contrast. Stomach partially decompressed. Normal-appearing colon. No evidence of diverticulitis or colitis. Appendix: Appendix not identified. Prior appendectomy by report. Intraperitoneal space: Trace fluid in the deep pelvis. No free air. Vasculature: Normal caliber abdominal aorta. Lymph nodes: No pathologically enlarged mesenteric, retroperitoneal, or pelvic sidewall lymph nodes. Urinary bladder: Normal appearing urinary bladder. Reproductive: Normal-sized uterus. Prior right salpingo-oophorectomy by report. Left ovary partially obscured but normal in size. Bones/joints: No acute fracture seen among the bones of the abdomen or pelvis. Soft tissues: No significant ventral or inguinal hernia. IMPRESSION: 1. Trace fluid in the cul-de-sac of Martín, nonspecific. Left ovary partially obscured but normal in size. 2. No acute bowel pathology demonstrated. Dictated and Authenticated by: Jose Matias MD. Ordering:YFN Carreon MD
[2023-03-03 01:44] LABS: Bilirubin Negative (Negative); Blood Negative (Negative); Clarity Clear (Clear); Glucose Negative (Negative); Ketones 15 mg/dL (Negative); Leukocyte Esterase Negative (Negative); Nitrite Negative (Negative); Specific Gravity 1.015 (1.005-1.025)
--- NOTE | 2023-03-03 07:03 | NUR.NOTE ---
Accessed pt chart to see about labs and disposition of patient. Nursing Note:
== END 2023-03-03 02:05 | disposition home or self-care (01) ==
PROVIDERS: Emergency Provider Student in an Organized Health Care Education/Training Program; PCP Nurse Practitioner Family
DX: R10.31 Right lower quadrant pain (principal); F17.210 Nicotine dependence, cigarettes, uncomplicated; Z90.79 Acquired absence of other genital organ(s); Z90.721 Acquired absence of ovaries, unilateral
CPT/HCPCS: 80053; 96361; 96374; 96375; 99285; 74177; 81003; 85025; 99284; J0131; J1885; J3490

== ENCOUNTER 2023-10-02 16:01 | Emergency (ER) | payer SELFPAY ==
[2023-10-02 16:10] VITALS: BP 122/76; PULSE 77; RESP 20; TEMP 36.4; O2SAT 99
--- NOTE | 2023-10-02 16:45 | RT.EKG_ITS ---
APPROVED REPORT Exam: Resting ECG Reason for Exam: Dizziness Patient Location: E HR:68 bpm ECG Measurements Heart Rate 68 AXIS [place] 155 P 42 QRSd 86 QRS 63 QT 379 T 37 QTc 405 Conclusion Sinus rhythm Rate 68 Isolated T wave inversion V1 No STEMI
[2023-10-02] MEDS: Ondansetron O.D.T. 4 MG TABEF PO (16:57)
[2023-10-02 17:00] VITALS: BP 115/53; BP 118/54; BP 119/85; PULSE 71; PULSE 73; PULSE 75
--- NOTE | 2023-10-02 17:38 | ED.GENADUL_ITS ---
Discharge Plan Disposition Patient Disposition: Home Discharge Details Clinical Impression: Dizziness, Nausea, Adverse effect hormone Primary Care Provider: Kaitlyn Mckeon ED Provider: Venus Wallace Home Meds and New Rx's Prescriptions: No Action estradiol 1 mg tablet 1 mg PO DAILY Patient Comments: TAKE ONE TABLET BY MOUTH EVERY DAY progesterone micronized 200 mg capsule 200 mg PO DAILY PRN Patient Comments: TAKE ONE CAPSULE BY MOUTH EVERY DAY FOR THE FIRST 12 DAYS OF THE MONTH Discharge Instructions Instructions: Dizziness, Adult ED, Return to School or Work ED Additional Instructions: You were seen in the emergency department today for evaluation of nausea and dizziness. In our department you have a full physical examination performed, received medications for your nausea, and had an EKG that was reassuring. It is safe for you to go home and follow-up with your primary care provider to discuss whether or not the dose of your medications needs to be changed based on your symptoms. Please maintain good hydration and nutrition, and thank you for allowing us to be part of your care. Discharge Data Discharge Date/Time-TO BE ENTERED AT DEPARTURE: 10/02/23 17:50 HPI General Mode of arrival: ambulatory . Date/Time Provider Initiated Documentation: 10/02/23 16:29 . Limitations to Documentation: no limitations . Information obtained by: patient, family and old records reviewed . HPI Narrative: MDM: In brief, this is a 27-year-old female patient with a history of dysmenorrhea, depression, presenting for evaluation of potential medication reaction with dizziness and nausea. My differential includes but is not limited to medication effect, orthostasis, vasovagal syndrome, arrhythmia, metabolic and electrolyte derangement, anemia, kidney injury, dehydration, liver disease. The patient has no chest pain to suggest ACS, has not sustained trauma and reassuringly did not lose consciousness or experience seizure-like activity. She has no focal neurodeficits to increase my concern for stroke, intracranial hemorrhage, or intracranial mass effect. We will obtain an EKG, provide the patient with a dose of Zofran for symptomatic management and obtain orthostatic vital signs. I am reassured that the patient is able to maintain her hydration and that she has had a very brief duration of symptoms, and at this time do not see an indication for advanced imaging or laboratory studies. ED Course: Independently interpreted the EKG which shows no abnormalities to account for her symptoms such as ischemia, interval abnormality, or ectopy. Orthostatic vital signs were negative, the patient tolerated p.o., and had complete resolution of her symptoms with administration of Zofran. She will follow-up with her primary care provider in the next few days to discuss this visit and any changes that need to be made to her medication dosing. at this time, the patient has had a full medical evaluation and is safe for discharge to home. They are hemodynamically stable, ambulatory, and tolerating PO. They are understanding of the follow-up plan and return precautions. They left our facility without incident. Venus Wallace MD HPI: This is a 27-year-old female patient with a history of dysmenorrhea and depression is presenting for evaluation of dizziness and nausea. The patient reports that she took her prescribed estrogen and progesterone, which is at a slightly changed/increased dose from typical. She began to have some lightheadedness and dizziness, worse with standing, few hours ago, and did have an episode of vomiting associated with the dizziness. She reports that she had no headache, change in vision, loss of consciousness, chest pain, and did not sustain injury. Prior to this event the patient was in her normal state of health, without fever or chills, change in p.o. intake, changes in bowel or bladder dysfunction. She reports that right now she feels slightly improved, has no dizziness when sitting down but does still have some ongoing nausea. Exam: Gen: Awake and alert, in no apparent distress HEENT: Non-icteric sclera, pupils equal and reactive, EOMs are full and without nystagmus Neck: Supple Lungs: No apparent respiratory distress, normal respiratory effort. Lung sounds clear and equal CV: Appears well perfused, heart with regular rate and rhythm, strong distal pulses Abdomen: Non-distended, soft, nontender MSK: Moves 4 extremities without apparent limitation in ROM Skin: Visualized skin without rashes, cyanosis. Neuro: Normal Gait, no obvious focal deficits or facial asymmetry. Speaks in full, clear sentences. Psych: Appropriate for situation. Related Data Home Medications ?Medication ?Instructions ?Recorded ?Confirmed estradiol 1 mg tablet 1 mg PO DAILY 10/02/23 10/02/23 progesterone micronized 200 mg 200 mg PO DAILY PRN 10/02/23 10/02/23 capsule Allergies Allergy/AdvReac Type Severity Reaction Status Date / Time adhesive Allergy Severe dunham skin Unverified 10/02/23 16:14 after being on tegan Allergy Severe Anaphylaxis Verified 10/02/23 16:14 red dye Allergy Intermediate Other (See Unverified 10/02/23 16:14 Comment) General Stated Complaint: Dizzy/Sync ANJEL: 4 Course Vital Signs Vital signs: Vital Signs Temperature 36.4 C 10/02/23 16:10 Pulse 77 10/02/23 16:10 Respiratory Rate 20 10/02/23 16:10 Blood Pressure 122/76 10/02/23 16:10 Pulse Oximetry 99 10/02/23 16:10 Temperature 36.4 C 10/02/23 16:10 Temperature Source Tympanic 10/02/23 16:10 Pulse 71 10/02/23 17:00 Respiratory Rate 20 10/02/23 16:10 Blood Pressure 119/85 10/02/23 17:00 Blood Pressure Position Sitting 10/02/23 16:10 Pulse Oximetry 99 10/02/23 16:10 Oxygen Delivery Method Room Air 10/02/23 16:10 Oxygen Flow Rate 0 10/02/23 16:10 Medical Decision Making Quality:SDOH Health Related Social Needs: No Data to Display PFSH All Active Problems (Updated 10/02/23 @ 17:39 by Venus Wallace MD) Adverse effect hormone (Acute) Nausea (Acute) Dizziness (Acute) Dysmenorrhea (Acute) Menses, irregular (Acute) Abrasion of cornea, left (Acute) Contraception management (Acute) Mirena IUD 08/2014. Removed 10/12/15. Pt didn't like menstrual irregularity. Started OCPs. 08/2016 Nexplanon inserted 09/09/17 Nexplanon out. Didnt like feeling hormonal. Condoms. 2019. Withdrawal. Recurrent erosion of cornea, left eye (Acute) Abrasion, corneal (Acute) Status post laparoscopy (Acute) 03/30/20. Lysis of extensive pelvic adhesions and right ovarian cystotomy Sciatica (Acute) Tobacco dependence (Acute) H/O hemorrhoidectomy (Chronic) Depression (Chronic) medication in the past, Has a counselor who she doesn't see often. Joey. Medical History Atypical squamous cells of undetermined significance (ASC-US) on cervical Pap smear 2021. Nl Pap. Pelvic pain Since TOA. No resolution after ABX, no improvement after laparoscopic lysis of adhesions 03/2020. 01/2021. RSO pain resolved. (normal spontaneous vaginal delivery) Abdominal pain during in second trimester Right tubo-ovarian abscess 05/2014. Neg STI testing at time of eval. Rx with ABX and resolved w/o surgery. Right tubo-ovarian abscess (05/19/14) Surgical History Hx of appendectomy History of right salpingo-oophorectomy hemorrhoid banding (04/09/17) Family History Mother Tachycardia Father Hypertension Depression Psychosis Mother Heart disease Social History Smoking/Tobacco Use Status: Current every day Tobacco Type: e-cigarettes Tobacco: How many years used: 1 Quit status: considering quitting Smoking risk assessment performed?: Yes Alcohol Intake: current Alcohol Intake frequency: 3 or more drinks per day Alcohol type: wine Drug use: Daily Substance use type: marijuana Household members: significant other, children and other Details: Christine Stover (07/2019) Housing: other Number of Children: 1 current occupation: Unemployed. Sexually active: Yes What is your relationship status?: never Panel score (0-1 are the most socially isolated patients): 0 What type of physical activity do you participate in: none Seatbelt use: always Do you feel safe at home: Yes Do you feel safe in your relationship?: Yes Female Reproductive History Menstrual control method: other History History 1 Para 1 Hx # Term Pregnancies 1 Multiple births 0 Hx # Pregnancies 0 Ectopic pregnancies 0 AB induced 0 Hx Number of Living Children 1 AB spontaneous 0 Past Pregnancies Del. Date GA/Weeks # Preg Succ Route Wgt Sex Labor Lgth Anesth esia Location Prov [facility] 07/30/19 39 No vaginal 3600.389 g Female Hugo Edwards MD Delivery Date: 07/30/19 Last Updated by: Dianelys Ramirez.
[2023-10-02] MEDS: Ondansetron O.D.T. 4 MG TABEF, 3 TABS/BTL PO (17:49)
== END 2023-10-02 17:50 | disposition home or self-care (01) ==
LOC: ER 18:22
PROVIDERS: Emergency Provider Emergency Medicine; PCP Nurse Practitioner Family
DX: R42 Dizziness and giddiness (principal); R11.2 Nausea with vomiting, unspecified; T38.805A Adverse effect of unspecified hormones and synthetic substitutes, initial encounter
CPT/HCPCS: 93005; 99282; 93010

== ENCOUNTER 2024-05-17 09:04 | Emergency (ER) | payer SELFPAY ==
[2024-05-17 09:06] VITALS: BP 130/93; PULSE 103; RESP 18; TEMP 37.1; O2SAT 97
[2024-05-17 09:11] VITALS: BP 130/93; PULSE 103; RESP 18; TEMP 37.1; O2SAT 97
[2024-05-17 09:41] VITALS: PULSE 99; RESP 16; RESP 3; O2SAT 95
[2024-05-17] MEDS: Albuterol/Ipratropium 3 ML UPD VIAL UPD (09:41)
[2024-05-17 10:27] VITALS: BP 118/65; PULSE 80; RESP 16; O2SAT 98
--- NOTE | 2024-05-17 12:12 | ED.GENADUL_ITS ---
Discharge Plan Disposition Patient Disposition: Home Condition: Stable Discharge Details Clinical Impression: Influenza B, Bronchitis Primary Care Provider: Kaitlyn Mckeon ED Provider: Sandra Lopes Home Meds and New Rx's Prescriptions: New prednisone 20 mg tablet 40 mg PO DAILY Qty: 10 0RF ondansetron HCl 4 mg tablet 4 mg PO Q8H PRNQty: 20 0RF albuterol sulfate 90 mcg/actuation HFA aerosol inhaler 2 puff inhalation 6XD PRNQty: 8.5 0RF Continued estradiol 1 mg tablet 1 mg PO DAILY Patient Comments: TAKE ONE TABLET BY MOUTH EVERY DAY progesterone micronized 200 mg capsule 200 mg PO DAILY PRN Patient Comments: TAKE ONE CAPSULE BY MOUTH EVERY DAY FOR THE FIRST 12 DAYS OF THE MONTH ibuprofen 800 mg tablet 800 mg PO Q6H PRN Patient Comments: TAKE ONE TABLET BY MOUTH EVERY 6 HOURS NEEDED FOR PAIN Discharge Instructions Instructions: Bronchitis, Adult ED, Flu, Adult ED Additional Instructions: Take the prednisone for the next 5 days Inhaler 2 puffs every 4 hours for cough wheeze and shortness of breath As needed for nausea and vomiting Motrin and Tylenol per package instructions for fever and chills Please return with persistent fever greater than 7 days worsening shortness of breath or should any new concerns arise Stand Alone Forms: Work Release Referrals: Kaitlyn Mckeon [Primary Care Provider] - 1 week Discharge Data Discharge Date/Time-TO BE ENTERED AT DEPARTURE: 05/17/24 10:31 HPI General Date/Time Provider Initiated Documentation: 05/17/24 09:07 . HPI Narrative: The patient is a 28-year-old female who presents with upper respiratory symptoms for 4 days. She reports that fever and cough began on . She has experienced some shortness of breath and posttussive emesis but does not have any nausea or diarrhea. She does not report any chest pain. She does not have any known sick contacts. She is concerned regarding the cost of the visit and would like to do minimum therapies as she does not have insurance. She is a tobacco smoker and does not report any chance of . Related Data Home Medications ?Medication ?Instructions ?Recorded ?Confirmed estradiol 1 mg tablet 1 mg PO DAILY 10/02/23 05/17/24 progesterone micronized 200 mg 200 mg PO DAILY PRN 10/02/23 05/17/24 capsule albuterol sulfate 90 mcg/actuation 2 puff inhalation 6XD PRN #8.5 05/17/24 aerosol inhaler grams ibuprofen 800 mg tablet 800 mg PO Q6H PRN 05/17/24 05/17/24 ondansetron HCl 4 mg tablet 4 mg PO Q8H PRN #20 tabs 05/17/24 prednisone 20 mg tablet 40 mg (2 x 20 mg) PO DAILY #10 tabs 05/17/24 Previous Rx's ?Medication ?Instructions ?Recorded albuterol sulfate 90 mcg/actuation 2 puff inhalation 6XD PRN #8.5 05/17/24 aerosol inhaler grams ondansetron HCl 4 mg tablet 4 mg PO Q8H PRN #20 tabs 05/17/24 prednisone 20 mg tablet 40 mg (2 x 20 mg) PO DAILY #10 tabs 05/17/24 Allergies Allergy/AdvReac Type Severity Reaction Status Date / Time adhesive Allergy Severe dunham skin Unverified 05/17/24 09:12 after being on tegan Allergy Severe Anaphylaxis Verified 05/17/24 09:12 red dye Allergy Intermediate Other (See Unverified 05/17/24 09:12 Comment) General Stated Complaint: RespSymp ANJEL: 4 Exam Narrative Exam Narrative: General Appearance: Alert and oriented. Vital signs: Sinus tachycardia. HEENT: Boggy nasal mucosa, patent oropharynx, midline uvula. Respiratory: Diminished lung sounds with rhonchi, no acute respiratory distress. Cardiovascular: No murmurs. Skin: Warm and dry, no rash. Neurological: Normal. Course Vital Signs Vital signs: Vital Signs Temperature 37.1 C 05/17/24 09:06 Pulse 103 H 05/17/24 09:06 Respiratory Rate 18 05/17/24 09:06 Blood Pressure 130/93 H 05/17/24 09:06 Pulse Oximetry 97 05/17/24 09:06 Temperature 37.1 C 05/17/24 09:11 Temperature Source Oral 05/17/24 09:11 Pulse 80 05/17/24 10:27 Respiratory Rate 16 05/17/24 10:27 Respiratory Effort Non-Labored, Short of Breath 05/17/24 09:13 Respiratory Depth Normal 05/17/24 09:13 Blood Pressure 118/65 05/17/24 10:27 Blood Pressure Position Sitting 05/17/24 09:11 Pulse Oximetry 98 05/17/24 10:27 Oxygen Delivery Method Room Air 05/17/24 09:41 Oxygen Flow Rate 0 05/17/24 09:41 Pain Level 4 05/17/24 09:11 Medical Decision Making Tested positive for influenza B. Initial Assessment: 28-year-old female with upper respiratory symptoms for 4 days, including fever and cough. Shortness of breath, posttussive emesis, no nausea, diarrhea, or chest pain. No known sick contacts. Tobacco smoker, denies chance of . Prefers minimal therapies due to lack of insurance. ED Course: - Patient agreeable to rapid flu and COVID tests. - DuoNeb treatment administered. - Positive for influenza B. - Placed on prednisone. - Given inhaler. - Close outpatient follow-up with primary care physician. - Chest x-ray deferred. - Supportive care advised. Final Assessment: Patient tested positive for influenza B. Treated with prednisone and given an inhaler. Chest x-ray deferred due to patient preference. Supportive care recommended. Follow-up with primary care physician. Clinical Impression: - Influenza B Disposition: - Discharge - Follow-Up: Close outpatient follow-up with primary care physician. MDM Components Evaluation: - Number of Differential Diagnoses or Management Options: Influenza B - Amount and Complexity of Data Reviewed: Rapid flu and COVID tests - Risk of Complication and Morbidity or Mortality: Moderate due to respiratory symptoms and tobacco use Quality:SDOH Health Related Social Needs: No Data to Display PFSH All Active Problems (Updated 05/17/24 @ 10:06 by KAT Perdomo) Bronchitis (Acute) Influenza B (Acute) Dysmenorrhea (Acute) Menses, irregular (Acute) Abrasion of cornea, left (Acute) Contraception management (Acute) Mirena IUD 08/2014. Removed 10/12/15. Pt didn't like menstrual irregularity. Started OCPs. 08/2016 Nexplanon inserted 09/09/17 Nexplanon out. Didnt like feeling hormonal. Condoms. 2019. Withdrawal. Recurrent erosion of cornea, left eye (Acute) Abrasion, corneal (Acute) Status post laparoscopy (Acute) 03/30/20. Lysis of extensive pelvic adhesions and right ovarian cystotomy Sciatica (Acute) Tobacco dependence (Acute) H/O hemorrhoidectomy (Chronic) Depression (Chronic) medication in the past, Has a counselor who she doesn't see often. Joey. Medical History Atypical squamous cells of undetermined significance (ASC-US) on cervical Pap smear 2021. Nl Pap. Pelvic pain Since TOA. No resolution after ABX, no improvement after laparoscopic lysis of adhesions 03/2020. 01/2021. RSO pain resolved. (normal spontaneous vaginal delivery) Abdominal pain during in second trimester Right tubo-ovarian abscess 05/2014. Neg STI testing at time of eval. Rx with ABX and resolved w/o surgery. Right tubo-ovarian abscess (05/19/14) Surgical History Hx of appendectomy History of right salpingo-oophorectomy hemorrhoid banding (04/09/17) Family History Mother Tachycardia Father Hypertension Depression Psychosis Mother Heart disease Social History Smoking/Tobacco Use Status: Current every day Tobacco Type: e-cigarettes Tobacco: How many years used: 1 Quit status: considering quitting Smoking risk assessment performed?: Yes Alcohol Intake: current Alcohol Intake frequency: 3 or more drinks per day Alcohol type: wine Drug use: Daily Substance use type: marijuana Household members: significant other, children and other Details: Christine Stover (07/2019) Housing: other Number of Children: 1 current occupation: Unemployed. Sexually active: Yes What is your relationship status?: never Panel score (0-1 are the most socially isolated patients): 0 What type of physical activity do you participate in: none Seatbelt use: always Do you feel safe at home: Yes Do you feel safe in your relationship?: Yes Female Reproductive History Menstrual control method: other History History 1 Para 1 Hx # Term Pregnancies 1 Multiple births 0 Hx # Pregnancies 0 Ectopic pregnancies 0 AB induced 0 Hx Number of Living Children 1 AB spontaneous 0 Past Pregnancies Del. Date GA/Weeks # Preg Succ Route Wgt Sex Labor Lgth Anesth esia Location Prov [facility] 07/30/19 39 No vaginal 3600.389 g Female Hugo Edwards MD Delivery Date: 07/30/19 Last Updated by: Dianelys Ramirez.
== END 2024-05-17 10:31 | disposition home or self-care (01) ==
LOC: ER 10:54
PROVIDERS: Emergency Provider Physician Assistant; PCP Nurse Practitioner Family
DX: J10.1 Influenza due to other identified influenza virus with other respiratory manifestations (principal); F17.290 Nicotine dependence, other tobacco product, uncomplicated
CPT/HCPCS: 87426; 94640; 99284; 99283; J7620

== ENCOUNTER 2024-12-14 10:48 | Outpatient (REF) | payer SELFPAY ==
[2024-12-15 17:25] LABS: Abs Immature Grans 0.03 10^3/uL (0.0-0.06); HCT 43.2 % (36.0-46.0); HGB 14.0 g/dL (11.2-15.7); Immature Grans % 0.5 %; MCH 29.4 pg (27.0-33.0); MCHC 32.4 % (32.0-36.0); MCV 91 fL (80-95); MPV 9.4 fL (8.0-11.0); Platelet Count 369 10^3/uL (130-400); RBC 4.77 10^6/uL (3.93-5.22); RDW 12.4 % (11.7-14.6); RDW-SD 41.1 fL; WBC 6.43 10^3/uL (4.4-10.8)
[2024-12-15 17:27] LABS: Anion Gap 10.8 mmol/L (3-11); BUN 13 mg/dL (7-18); CO2 27.2 mmol/L (21.0-32.0); Calcium 9.6 mg/dL (8.5-10.1); Chloride 102 mmol/L (98-107); Glucose 67 mg/dL (74-106); Potassium 4.3 mmol/L (3.5-5.1); Sodium 140 mmol/L (136-145)
== END 2024-12-14 10:49 | disposition home or self-care (01) ==
LOC: NCHCN 10:48
PROVIDERS: PCP Nurse Practitioner Family; Visit Provider Family Medicine
DX: R10.A3 Flank pain, bilateral (principal)
CPT/HCPCS: 80048; 85025